=== PATIENT | male | born 1985 | race African-American/Black ===

== ENCOUNTER 2016-06-16 05:42 | Inpatient (IN) | payer MEDICAID ==
[2016-06-16 06:27] LABS: Hematocrit 39 % (42-52); Hemoglobin 12.8 g/dl (14.0-18.0); Mean Corpuscular HGB Conc 33 g/dl (31-36); Mean Corpuscular Hemoglobin 28 pg (27-31); Mean Corpuscular Volume 84 fL (80-94); Mean Platelet Volume 8 um3 (7.4-10.4); Red Blood Count 4.63 10^6/ul (4.0-5.4); Red Cell Distribution Width 14 % (10.5-15); White Blood Count 5.9 10^3/ul (3.5-10.8)
[2016-06-16 06:40] LABS: Urine Bacteria Absent (Absent); Urine Bilirubin Negative (Negative); Urine Glucose Negative (Negative); Urine Nitrite Negative (Negative)
[2016-06-16 06:44] LABS: ALT 13 U/L (7-52); AST 14 U/L (13-39); Albumin 4.5 g/dL (3.2-5.2); Alkaline Phosphatase 71 U/L (34-104); Anion Gap 11 mmol/L (2-11); BUN/Creatinine Ratio 22.4 (8-20); Blood Urea Nitrogen 17 mg/dL (6-24); CO2 Carbon Dioxide 23 mmol/L (22-32); Calcium 9.7 mg/dL (8.6-10.3); Chloride 102 mmol/L (101-111); EGFR African American 155.9 (>60); EGFR Non-African American 121.3 (>60); Globulin 3.5 g/dL (2-4); Glucose 102 mg/dL (70-100); Potassium 3.4 mmol/L (3.5-5.0); Sodium 136 mmol/L (133-145)
[2016-06-16 06:46] LABS: Benzodiazepine Urine Screen None Detected (None Detect)
[2016-06-16 06:57] LABS: Acetaminophen < 15 mcg/mL; Alcohol < 10 mg/dL (<10); Salicylate < 2.50 mg/dL (<30)
[2016-06-16 07:08] LABS: TSH (Thyroid Stimulating Horm) 1.14 mcIU/mL (0.34-5.60)
[2016-06-16] MEDS ORDERED: Al Hydrox/Mg Hydrox/Simet LIQ* 30 ML UDC PO PRN (13:52)
[2016-06-16] MEDS ORDERED: Acetaminophen TAB* 325 MG PO PRN (13:52)
--- NOTE | 2016-06-16 14:53 | ED ---
Yareli Witt Auryana, scribed for Michael Sevilla MD on 06/16/16 at 0841 . Substance Abuse/Use - HPI Summary HPI Summary: 31 year old male KALIA with SI. Per triage - patient went to [place] [facility] stating that he has suicidal ideation and stated that he used crack cocaine and alcohol (@ 00:00 today). Patient was resting quietly on stretcher - level 5 caveat due to sleepiness. MEDICALLY CLEAR AT 07:19. - History Of Current Complaint Chief Complaint: [facility]MentalHealth Stated Complaint: MHE Time Seen by Provider: 06/16/16 07:20 Hx Obtained From: Medical Records, Other: - triage nurse Hx From Patient Unobtainable Due To: Other - levvel 5 caveat due to substance abuse Ingestion History: Type/Name Of Drug - crack cocaine and ETOH Timing Of Abuse: Binge Use Aggravating Factor(s): Other - mothers passing in 2014 Associated Signs And Symptoms: Other: - suicidal ideation Related Hx: Drug/Alcohol Last Used @ - midnight 06/16/16, Possible Multi Drug Ingestion - crack cocaine and ETOH, Suicidal: Thoughts - Risk Factor(s) Completed Suicide Risk Factors: Male - Allergies/Home Medications Allergies/Adverse Reactions: Allergies Allergy/AdvReac Type Severity Reaction Status Date / Time No Known Allergies Allergy Verified 06/16/16 06:00 Home Medications: Home Medications NK [No Home Medications Reported] 06/16/16 [History Confirmed 06/16/16] PMH/Surg Hx/FS Hx/Imm Hx Endocrine/Hematology History: Denies: Hx Anticoagulant Therapy, Hx Diabetes, Hx Thyroid Disease Cardiovascular History: Denies: Hx Hypertension, Hx Pacemaker/ICD Respiratory History: Denies: Hx Asthma, Hx Chronic Obstructive Pulmonary Disease (COPD) History: Denies: Hx Renal Disease Neurological History: Denies: Hx Dementia, Hx Seizures Psychiatric History: Reports: Hx Substance Abuse - cocaine - Surgical History Surgery Procedure, Year, and Place: None - Immunization History Date of Tetanus Vaccine: UNKNOWN Date of Influenza Vaccine: NO Infectious Disease History: No Infectious Disease History: Denies: Hx Hepatitis, Hx Human Immunodeficiency Virus (HIV), Traveled Outside the US in Last 30 Days - Family History Known Family History: Positive: Cardiac Disease - mother of [place] - Social History Occupation: Employed Part-time - [employer] Lives: Alone Alcohol Use: Weekly Substance Use Type: Reports: Cocaine Hx Tobacco Use: Yes Smoking Status (MU): Heavy Every Day Tobacco Smoker Type: Cigarettes Amount Used/How Often: 5 per day Review of Systems - ROS Summary Review of Systems Summary: level 5 caveat due to substance abuse Positive: Other - substance abuse. Negative: Fever Positive: Other - SI All Other Systems Reviewed And Are Negative: No Physical Exam - Summary Physical Exam Summary: Patient is medically clear at 07:19 Triage Information Reviewed: Yes Vital Signs On Initial Exam: Initial Vitals Temp 98 F 06/16/16 05:46 Vital Signs Reviewed: Yes Completion Of Physical Exam Limited Due To: Level 5 - level 5 caveat due to substance abuse Appearance: Positive: Well-Appearing, No Pain Distress - sleeping on physician visit Skin: Positive: Warm, Skin Color Reflects Adequate Perfusion, Dry Head/Face: Positive: Normal Head/Face Inspection Neck: Positive: Supple Respiratory/Lung Sounds: Positive: Breath Sounds Present Cardiovascular: Positive: RRR Diagnostics - Vital Signs Vital Signs Temp Pulse Resp BP Pulse Ox 06/16/16 05:57 98 F 101 18 159/94 98 06/16/16 05:46 98 F - Laboratory Lab Results: Lab Results 06/16/16 06/16/16 06/16/16 Range/Units 06:15 06:15 06:15 WBC 5.9 (3.5-10.8) 10^3/ul RBC 4.63 (4.0-5.4) 10^6/ul Hgb 12.8 L (14.0-18.0) g/dl Hct 39 L (42-52) % MCV 84 (80-94) fL MCH 28 (27-31) pg MCHC 33 (31-36) g/dl RDW 14 (10.5-15) % Plt Count 219 (150-450) 10^3/ul MPV 8 (7.4-10.4) um3 Neut % (Auto) 62.8 (38-83) % Lymph % (Auto) 30.6 (25-47) % [place] % (Auto) 5.7 (1-9) % Eos % (Auto) 0.2 (0-6) % Baso % (Auto) 0.7 (0-2) % Absolute Neuts (auto) 3.7 (1.5-7.7) 10^3/ul Absolute Lymphs (auto) 1.8 (1.0-4.8) 10^3/ul Absolute Monos (auto) 0.3 (0-0.8) 10^3/ul Absolute Eos (auto) 0 (0-0.6) 10^3/ul Absolute Basos (auto) 0 (0-0.2) 10^3/ul Absolute Nucleated RBC 0 10^3/ul Nucleated RBC % 0 Sodium 136 (133-145) mmol/L Potassium 3.4 L (3.5-5.0) mmol/L Chloride 102 (101-111) mmol/L Carbon Dioxide 23 (22-32) mmol/L Anion Gap 11 (2-11) mmol/L BUN 17 (6-24) mg/dL Creatinine 0.76 (0.67-1.17) mg/dL Est GFR ( Amer) 155.9 (>60) Est GFR (Non-Af Amer) 121.3 (>60) BUN/Creatinine Ratio 22.4 H (8-20) Glucose 102 H (70-100) mg/dL Calcium 9.7 (8.6-10.3) mg/dL Total Bilirubin 0.60 (0.2-1.0) mg/dL AST 14 (13-39) U/L ALT 13 (7-52) U/L Alkaline Phosphatase 71 (34-104) U/L Total Protein 8.0 (6.4-8.9) g/dL Albumin 4.5 (3.2-5.2) g/dL Globulin 3.5 (2-4) g/dL Albumin/Globulin Ratio 1.3 (1-3) TSH 1.14 (0.34-5.60) mcIU/mL Urine Color Yellow Urine Appearance Cloudy Urine pH 5.0 (5-9) Ur Specific Dud[place] 1.036 H (1.010-1.030) Urine Protein 1+(30 mg/dl) H (Negative) Urine Ketones Trace H (Negative) Urine Blood Negative (Negative) Urine Nitrate Negative (Negative) Urine Bilirubin Negative (Negative) Urine Urobilinogen Negative (Negative) Ur Leukocyte Esterase Negative (Negative) Urine WBC (Auto) Trace(0-5/hpf) (Absent) Urine RBC (Auto) 1+(3-5/hpf) H (Absent) Ur Squamous Epith Cells Present H (Absent) Urine Bacteria Absent (Absent) Urine Glucose Negative (Negative) Salicylates < 2.50 (<30) mg/dL Urine Opiates Screen (None Detect) Acetaminophen < 15 mcg/mL Ur Barbiturates Screen (None Detect) Ur Phencyclidine Scrn (None Detect) Ur Amphetamines Screen (None Detect) U Benzodiazepines Scrn (None Detect) Urine Cocaine Screen (None Detect) U Cannabinoids Screen (None Detect) Serum Alcohol < 10 (<10) mg/dL 06/16/16 Range/Units 06:15 WBC (3.5-10.8) 10^3/ul RBC (4.0-5.4) 10^6/ul Hgb (14.0-18.0) g/dl Hct (42-52) % MCV (80-94) fL MCH (27-31) pg MCHC (31-36) g/dl RDW (10.5-15) % Plt Count (150-450) 10^3/ul MPV (7.4-10.4) um3 Neut % (Auto) (38-83) % Lymph % (Auto) (25-47) % [place] % (Auto) (1-9) % Eos % (Auto) (0-6) % Baso % (Auto) (0-2) % Absolute Neuts (auto) (1.5-7.7) 10^3/ul Absolute Lymphs (auto) (1.0-4.8) 10^3/ul Absolute Monos (auto) (0-0.8) 10^3/ul Absolute Eos (auto) (0-0.6) 10^3/ul Absolute Basos (auto) (0-0.2) 10^3/ul Absolute Nucleated RBC 10^3/ul Nucleated RBC % Sodium (133-145) mmol/L Potassium (3.5-5.0) mmol/L Chloride (101-111) mmol/L Carbon Dioxide (22-32) mmol/L Anion Gap (2-11) mmol/L BUN (6-24) mg/dL Creatinine (0.67-1.17) mg/dL Est GFR ( Amer) (>60) Est GFR (Non-Af Amer) (>60) BUN/Creatinine Ratio (8-20) Glucose (70-100) mg/dL Calcium (8.6-10.3) mg/dL Total Bilirubin (0.2-1.0) mg/dL AST (13-39) U/L ALT (7-52) U/L Alkaline Phosphatase (34-104) U/L Total Protein (6.4-8.9) g/dL Albumin (3.2-5.2) g/dL Globulin (2-4) g/dL Albumin/Globulin Ratio (1-3) TSH (0.34-5.60) mcIU/mL Urine Color Urine Appearance Urine pH (5-9) Ur Specific Dudley (1.010-1.030) Urine Protein (Negative) Urine Ketones (Negative) Urine Blood (Negative) Urine Nitrate (Negative) Urine Bilirubin (Negative) Urine Urobilinogen (Negative) Ur Leukocyte Esterase (Negative) Urine WBC (Auto) (Absent) Urine RBC (Auto) (Absent) Ur Squamous Epith Cells (Absent) Urine Bacteria (Absent) Urine Glucose (Negative) Salicylates (<30) mg/dL Urine Opiates Screen None detected (None Detect) Acetaminophen mcg/mL Ur Barbiturates Screen None detected (None Detect) Ur Phencyclidine Scrn None detected (None Detect) Ur Amphetamines Screen None detected (None Detect) U Benzodiazepines Scrn None detected (None Detect) Urine Cocaine Screen Presumptive positive H (None Detect) U Cannabinoids Screen Presumptive positive H (None Detect) Serum Alcohol (<10) mg/dL Result Diagrams: 06/16/16 06:15 06/16/16 06:15 Lab Statement: Any lab studies that have been ordered have been reviewed, and results considered in the medical decision making process. Course/Dx - Course Course Of Treatment: NO CRITICAL CARE TIME Assessment/Plan: ADMIT MHU STABLE - Diagnoses Provider Diagnoses: Mental health problem Discharge - Discharge Plan Condition: Stable Disposition: ADMITTED TO [facility] documentation as recorded by the Yareli hopkins Auryana accurately reflects the service I personally performed and the decisions made by me, Michael Sevilla MD.
[2016-06-17] MEDS: Mouth Piece, Nicotine* 1 EACH CARTRIDGE INH ONE ×2 (07:59→16:51)
[2016-06-17] MEDS: Vitamin THERAPEUTIC TAB PO SCH (09:40)
[2016-06-17] MEDS: Nicotine Inhaler* 10 MG AMP INH PRN (16:50)
[2016-06-17] MEDS: Nicotine PATCH 14 MG/24 HR* PATCH TRANSDERM SCH (17:10)
[2016-06-17] MEDS: Nicotine GUM* 2 MG PO PRN (17:55)
[2016-06-17] MEDS: hydrOXYzine HCL TAB* 50 MG PO PRN (17:55)
--- NOTE | 2016-06-17 19:34 | HP ---
PSYCHIATRIC HISTORY AND PHYSICAL: DATE OF ADMISSION: 06/16/16 JUSTIFICATION FOR ADMISSION: The patient is in need of 24-hour supervision and treatment secondary to suicidal ideations with a plan to jump into traffic or perhaps drink Antifreeze. CHIEF COMPLAINT: "Nobody in my family wants me and I feel at this point like somebody is just going to find me somewhere." HISTORY OF PRESENT ILLNESS: The patient is a 31-year-old single male with a history of cannabis and cocaine abuse who was brought in by the police yesterday after calling the police precinct and telling them that he felt suicidal. The patient indicates that for the last month since he broke up with his girlfriend and was kicked out of her house, he has been staying with various friends and family. He states all of them have kicked him out for various reasons and that he has been living out in the cold and has no place to stay. He states that he felt overwhelmed and started thinking of ways that he could end his life, jumping in front of an [address] or drinking antifreeze or two other things that he has been thinking about. I did screen him for symptoms of depression and although he admits to poor sleep secondary to being out on the streets and limited energy due to having not much food to eat, he denies other symptoms such as anhedonia, guilt, concentration problems, appetite disturbance, psychomotor retardation, or agitation. The patient states that his problems began approximately 2 years ago when his mother . He was very dependent on her and since then he has struggled both with drugs and with having stable housing in the community. At this point, what he is seeking is housing and followup treatment in the community. He doubts that he would be interested in substance abuse treatment at this time. PAST PSYCHIATRIC HISTORY: He has never received any psychiatric services including medications, therapies, or hospitalizations. He indicates that he has never attempted suicide. He has no history of violence towards others. No history of traumatic brain injury and no history of abuse or neglect. SUBSTANCE ABUSE HISTORY: Significant for almost daily cannabis use since his teenage years, which he does not feel is a problem. He also admits that he has been abusing cocaine several times a week for the past 2 years. He denies other illicit substances of abuse and does not drink alcohol. He smokes approximately 1/2 pack of cigarettes per day. PAST MEDICAL HISTORY: Noncontributory. PAST SURGICAL HISTORY: Has no history of surgeries. MEDICATIONS: He is not on any current medications. ALLERGIES: Has no known drug allergies. FAMILY HISTORY: Significant for several family members with active drug abuse problems. He is unaware of any suicides in the family. SOCIAL HISTORY: The patient was born and raised in [place]. He moved with his mother to [place] approximately 2 to 3 years ago. However, she leaving him homeless. He has 11 total siblings being the 11th out of 12 children. He did graduate from high school in [place] and has 22 credit hours at [employer]. He self-identifies as single and heterosexual, and has no sexually transmitted diseases. He has never been in the . He has never been . Has no children. He grew up [facility], but now states that he is agnostic. He does have a significant legal history of being on [facility] 60 days in [facility] for stealing a credit card back in 2014. Recently, he had been working at a local [employer], but he was apparently fired for time and attendance issues approximately 2 weeks ago. REVIEW OF SYSTEMS: The patient denies headache or double vision. He denies cough, sore throat, difficulty breathing, or chest pain. He denies abdominal pain, nausea, vomiting, diarrhea, or constipation. He denies difficulty ambulating, rashes, enlarged lymph nodes, fevers, or changes in weight. PHYSICAL EXAMINATION VITAL SIGNS: Blood pressure 141/89, heart rate 97, oxygen saturations are 100% on room air, respiratory rate is 16 breaths per minute, temperature is 99.1 degrees Fahrenheit. HEENT: Head is normocephalic, atraumatic. NECK: Supple. CHEST: Clear to auscultation bilaterally. CARDIAC: Exam reveal normal heart sounds. ABDOMEN: Soft and nontender. SKIN: Warm and dry. MUSCULOSKELETAL: Exam reveals no sign of edema. NEUROLOGICAL: He is grossly intact with no focal deficits. LABORATORY DATA: His CBC reveals mild anemia with hemoglobin of 12.8 and a hematocrit of 39. Otherwise, CBC is within normal limits. CMP is significant for mildly elevated glucose at 102, mildly low potassium at 3.4. Urinalysis is positive for 1+ trace protein, 1+ red blood cells, and trace ketones. Urine drug screen is positive for both cocaine and cannabinoids, but negative for all other substances tested including alcohol. MENTAL STATUS EXAM: The patient is a young male with nappy dread- locked hair. He is dressed in green patient scrubs. He is lying supine in bed under his covers. He is initially asleep, but easily arousable and he makes good eye contact and is calm and cooperative. Speech is slow, but with normal volume. Mood is dysthymic with constricted affect. Thought process is linear and goal directed. Thought content is significant for his desire to find housing in the community. He denies suicidal or homicidal ideations currently. He denies auditory or visual hallucinations. Insight and judgment are fair given his willingness to come in and seek treatment. Cognitively, he is awake and alert with what appeared to be an average intellect. DIAGNOSES: Sw[place] I: Cocaine-induced mood disorder, cocaine use disorder, cannabis use disorder. Sw[place] II: Deferred. Swanton III: Mild anemia. Swanton IV: Severe primary support and housing stressors. Swanton V: At this time is 50. IMPRESSION: The patient is a 31-year-old single male with a history of cocaine and cannabis abuse who arrives due to homelessness and report to the police that he was feeling suicidal. Currently, he is no longer suicidal, but states that he would like to get into outpatient treatment as well as find housing in the community. The patient does not have collateral contacts to get in touch with at this time. PLAN: The patient is admitted to the adult behavioral health unit where he is placed on q.30 minute checks for his own safety. We have placed him on a nicotine patch for nicotine withdrawal. I can certainly repeat CBC to check and see if his anemia is stable. We will ask for social work consult for assistance in housing. The patient is precontemplative in terms of seeking substance abuse treatment at this time. I do not think that he warrants medication treatment at this time given the fact that his pathology appears to be substance abuse related in nature. While he is here, he is certainly encouraged to avail himself of all milieu activities. We will make sure that appropriate followup is put in place before he is discharged. [id number]/[facility] #: [id number] JILL
[2016-06-17] MEDS: Nicotine Patch Removal NOTE FOLLOW UP SCH (20:57)
[2016-06-18] MEDS: Vitamin THERAPEUTIC TAB PO SCH (09:36)
[2016-06-18] MEDS: Nicotine PATCH 14 MG/24 HR* PATCH TRANSDERM SCH (09:36)
--- NOTE | 2016-06-18 14:36 | PN ---
Subjective - Subjective Service Type: 43916 Hosp care 15 min low complexity Subjective: Today I had the opportunity to meet with Linnette. He was in his room in bed, under the covers, reporting that he felt tired. Reporting good sleep, but still some fatigue. Reports good appetite, and feels that his mood is "a bit better." He report that he met with his social work manager today and is anticipating inpatient rehab. He reports that he is also exploring alternative living options upon his discharge- one possibility includes moving in with his older brother in [place]. No new issues reported at present. Case reviewed with Dr. Cade. Objective - Appearance Dysmorphic Features: No Hygiene: Normal Grooming: Disheveled - Behavior Psychomotor Activities: Normal Exhibits Abnormal Movement: No - Attitude and Relatedness Attitude and Relatedness: Cooperative Eye Contact: Fair - Speech Quality: Unpressured Latencies: Normal Quantity: Appropriate - Mood Patient's Decription of Mood: "Okay" - Affect Observed Affect: Non-labile Affect Consistent with: Dysphoria - Thought Process Patient's Thought Process: Coherent Thought Content: No Passive Wish, No Suicidal Planning, No Homicidal Ideation, No Paranoid Ideation - Sensorium Experiencing Hallucinations: No, Sensorium is Clear - Level of Consciousness Level of Consciousness: Agitated Orientation: Yes Intact - Impulse Control Impulse Control: Tenuous - Insight and Judgement Insight and Judgement: Fair - Group Participation Particating in Group Activities: Yes Assessment - Assessment Clinical Impression: Tai is a 31 year old AA male who is currently in early recovery from cannabis and cocaine abuse who was admitted for his own safety after devising a suicide plan to "walk into traffic." Plan - Plan Treatment Plan: Name: TAI ASHRAF Birthdate: 1985 [id number] Medications: Current Medications Acetaminophen (Tylenol Tab*) 650 mg PO Q4H PRN PRN Reason: for pain; or Temp >101 F Al Hydrox/Mg Hydrox/Simethicone (Maalox Plus*) 30 ml PO Q4H PRN PRN Reason: INDIGESTION Hydroxyzine HCl (Atarax Tab*) 50 mg PO Q6H PRN PRN Reason: AGITATION/ANXIETY/INSOMNIA Last Admin: 06/17/16 17:55 Dose: 50 mg Multivitamins (Theragran Tab*) 1 tab PO DAILY [facility] Last Admin: 06/18/16 09:36 Dose: 1 tab Nicotine (Nicotine Inhaler*) 10 mg INH Q2H PRN PRN Reason: CRAVING Last Admin: 06/17/16 16:50 Dose: 10 mg Nicotine (Nicotine Patch 14 Mg/24 Hr*) 1 patch TRANSDERM DAILY [facility] Last Admin: 06/18/16 09:36 Dose: 1 patch Nicotine Polacrilex (Nicotine Gum*) 2 mg PO Q2H PRN PRN Reason: CRAVING Last Admin: 06/17/16 17:55 Dose: 2 mg Pharmacy Profile Note (Nicotine Patch Removal Note*) 1 note FOLLOW UP 2100 [facility] Last Admin: 06/17/16 20:57 Dose: Not Given
[2016-06-18] MEDS: hydrOXYzine HCL TAB* 50 MG PO PRN (18:24)
[2016-06-18] MEDS: Nicotine GUM* 2 MG PO PRN (18:24)
[2016-06-18] MEDS: Nicotine Inhaler* 10 MG AMP INH PRN (18:25)
[2016-06-18] MEDS: Nicotine Patch Removal NOTE FOLLOW UP SCH (21:37)
[2016-06-19] MEDS: Vitamin THERAPEUTIC TAB PO SCH (08:24)
[2016-06-19] MEDS: Nicotine PATCH 14 MG/24 HR* PATCH TRANSDERM SCH (08:24)
[2016-06-19] MEDS: Nicotine Inhaler* 10 MG AMP INH PRN (20:01)
[2016-06-19] MEDS: Nicotine Patch Removal NOTE FOLLOW UP SCH (20:01)
[2016-06-20] MEDS: Nicotine PATCH 14 MG/24 HR* PATCH TRANSDERM SCH (08:40)
[2016-06-20] MEDS: Vitamin THERAPEUTIC TAB PO SCH (08:40)
--- NOTE | 2016-06-20 12:45 | PN ---
Subjective - Subjective Service Type: 64776 Hosp care 15 min low complexity Subjective: The patient is calm and cooperative. He endorses mild dysthymia but denies SI or HI. We discuss the pros and cons of antidepressant therapy in the setting of ongoing substance misuse and he declines an offered trial of citalopram. He does inquire about housing and disability assistance. The patient has agreed to a referral to inpatient drug rehab. Objective - Appearance Appearance: Obese Dysmorphic Features: No Hygiene: Normal Grooming: Well Kept - Behavior Psychomotor Activities: Normal Exhibits Abnormal Movement: No - Attitude and Relatedness Attitude and Relatedness: Cooperative Eye Contact: Good - Speech Quality: Unpressured Latencies: Normal Quantity: Appropriate - Mood Patient's Decription of Mood: "Sad" - Affect Observed Affect: Fair Affect Consistent with: Euthymia - Thought Process Patient's Thought Process: Coherent Thought Content: No Passive Wish, No Suicidal Planning, No Homicidal Ideation, No Paranoid Ideation - Sensorium Experiencing Hallucinations: No, Sensorium is Clear Type of Hallucinations: Visual: No, Auditory: No, Command: No - Level of Consciousness Level of Consciousness: Alert Orientation: Yes Intact, Yes Orientated to Time, Yes Orientated to Place, Yes Orientated to Person - Impulse Control Impulse Control: Tenuous - Insight and Judgement Insight and Judgement: Fair - Group Participation Particating in Group Activities: Yes - Medication Management Medication Management Adherence: Yes Assessment - Assessment Merits Inpatient Hospitalization: Consolidate Improvements, Pending Safe DC Plan Inpatient DSM-IV Dx: Cocaine Induced Mood DO Clinical Impression: 31 y.o. single, AA, homeless male with a history of cocaine and cannabis misuse arrives voluntarily seeking admission secondary to depressed mood since the of his mother two years ago and SI with thoughts to drink antifreeze or step into traffic. Plan - Plan Treatment Plan: Name: TAI ASHRAF Birthdate: 1985 [id number] The patient is calm and cooperative on the unit. We await assistance by the Medicaid coronary care unit nurse to get him reinsured. He is invested in going to [facility] re[facility] on an inpatient basis, which I think he would benefit from. Continued Medication Management: Consider Medication Medications: Current Medications Acetaminophen (Tylenol Tab*) 650 mg PO Q4H PRN PRN Reason: for pain; or Temp >101 F Al Hydrox/Mg Hydrox/Simethicone (Maalox Plus*) 30 ml PO Q4H PRN PRN Reason: INDIGESTION Hydroxyzine HCl (Atarax Tab*) 50 mg PO Q6H PRN PRN Reason: AGITATION/ANXIETY/INSOMNIA Last Admin: 06/18/16 18:24 Dose: 50 mg Multivitamins (Theragran Tab*) 1 tab PO DAILY [facility] Last Admin: 06/20/16 08:40 Dose: 1 tab Nicotine (Nicotine Inhaler*) 10 mg INH Q2H PRN PRN Reason: CRAVING Last Admin: 06/19/16 20:01 Dose: 10 mg Nicotine (Nicotine Patch 14 Mg/24 Hr*) 1 patch TRANSDERM DAILY [facility] Last Admin: 06/20/16 08:40 Dose: 1 patch Nicotine Polacrilex (Nicotine Gum*) 2 mg PO Q2H PRN PRN Reason: CRAVING Last Admin: 06/18/16 18:24 Dose: 2 mg Pharmacy Profile Note (Nicotine Patch Removal Note*) 1 note FOLLOW UP 2100 [facility] Last Admin: 06/19/16 20:01 Dose: 1 note - Discharge Plan Discharge Plan: Drug/Alcohol Rehab
[2016-06-20] MEDS: Nicotine Inhaler* 10 MG AMP INH PRN (13:52)
[2016-06-20] MEDS: Nicotine Patch Removal NOTE FOLLOW UP SCH (20:20)
[2016-06-21 07:37] VITALS: BP 147/90
[2016-06-21] MEDS: Nicotine PATCH 14 MG/24 HR* PATCH TRANSDERM SCH (11:05)
[2016-06-21] MEDS: Vitamin THERAPEUTIC TAB PO SCH (11:05)
--- NOTE | 2016-06-21 21:35 | DS ---
DISCHARGE SUMMARY: DATE OF ADMISSION: 06/16/16 DATE OF DISCHARGE: 06/21/16 DISCHARGE DIAGNOSES: As follows: Sherman I: Cocaine-induced mood disorder, cocaine use disorder, cannabis use disorder. Sherman II: Defe rred. Sherman III: Mild anemia. Sherman IV: Severe primary support housing stressors. Sherman V: At the t santos of admission is 50 and at the time of discharge is 60. CONDITION AT THE TIME OF DISCHARGE: Stable. The patient has been denying suicidal ideations throug hout his hospitalization and he has been safe on all checks at this time. He is indicating that he would like to find emergency housing through [facility] and we will be discharging him to that facility thi s morning. The patient is declining inpatient substance abuse rehab indicating his preference to re ceive treatment on an outpatient basis. He is future oriented indicating that his plan is to go to [employer] where he used to be employed and get his old job back and start working towards getting h is own apartment. His affect appears to be euthymic and we see no evidence whatsoever of thoughts o f harming himself or others. In fact, he denies suicidal or homicidal ideations right up until the point of discharge. MENTAL STATUS EXAM: The patient is a young -Kyrgy[place] male who is slightly overweight with dr velázquez-locked hair. He is dressed in green patient scrubs. He is lying supine in bed under his covers . He is initially asleep, but easily arousable and he makes good eye contact and is calm and mike ative. Speech is slow, but with normal volume. Mood is euthymic with a full affect. Thought proce ss is linear and goal directed. Thought content is significant for his desire to be discharged from the hospital. He denies suicidal or homicidal ideations currently. He denies auditory or visual river llucinations. Insight and judgment are fair given his willingness to seek outpatient substance abus e treatment. Cognitively, he is awake and alert with what would appear to be an average intellect. DISCHARGE INSTRUCTIONS: To the patient are as follows: A. Medications. None. B. Diet: Regular. C. Activity: As tolerated. The patient is strongly encouraged to consider abstaining from tobacco products; however, he is declining the offer of continued nicotine replacement therapy on an outpat ient basis indicating his preference to continue smoking cigarettes for the time being. There are n o diagnostic studies pending at the time of discharge. D. Followup treatment: The patient will be followed at the [facility] and his intake there would be within one week of discharge. HOSPITAL COURSE: Part A: Reason for admission: The patient is a 31-year-old single -[place] male with a history of cannabis and cocaine abuse who was brought in by police yesterday after ca lling the police precinct and telling them that he felt suicidal. The patient indicates that for th e past month, he has broken up with his girlfriend and was kicked out of her house, and had been sta james with various friends and family. He states that all of them have kicked him out for various re asons and that he had been living out in the cold and had no place to stay. He states that he was f eeling overwhelmed and started thinking of ways that he could possibly end his life including though ts of either jumping in front of an 18-wheeled vehicle or drinking antifreeze. I did screen him for symptoms of depression and although he admitted to poor sleep secondary to being out on the streets and somewhat limited energy due to not having much food to eat, he did deny other symptoms such as anhedonia, guilt, concentration problems, appetite disturbance, psychomotor retardation, or agitatio n. The patient states that his problems began approximately 2 years ago when his mother . He w as very dependent on her and since then, he has struggled both with drugs and maintaining stable bg sing in the community. At this point, what he was seeking was housing and followup treatment in the community. He doubted that he would be interested in substance abuse treatment at the time of admi ssion. Part B: Psychiatric treatment rendered: The patient was admitted to the adult behavioral health [facility] where he was placed on q.30-minute checks for his own safety. He expressed an interest in gettin g on disability and he was educated that this is a process to be pursued in the outpatient setting. We were able to talk to him initially into changing his mind about rehab and we worked towards gett ing his Medicaid reactivated so that we could refer him to a rehab. However, he changed his mind an d on the date of discharge, he is stating that what he really wants is to seek emergency housing thr [facility] and to get his old job back at [employer]. He was willing to accept a referral to the [facility] [place]. At this point, the patient has been safe on all checks and we see no reason that would justify of keeping him at a more restricted inpatient level of care. He i s discharged to outpatient followup and we wish him the best for a safe, sober, and healthy future. [id number]/[facility] #: [id number]
== END 2016-06-21 12:20 | disposition home or self-care (01) | DRG 897 ==
LOC: ED 05:42 → BSU 14:10
PROVIDERS: ADMIT Psychiatry & Neurology Psychiatry; ATTEND Psychiatry & Neurology Psychiatry
DX: F14.14 Cocaine abuse with cocaine-induced mood disorder (principal); R45.851 Suicidal ideations; D64.9 Anemia, unspecified; F17.210 Nicotine dependence, cigarettes, uncomplicated; F12.10 Cannabis abuse, uncomplicated; Z81.3 Family history of other psychoactive substance abuse and dependence
CPT/HCPCS: 36415; 80053; 80307; 80320; 80329; 81003; 81015; 84443; 85025; 99222; 99231; 99238; A9270-GY; G0480

== ENCOUNTER 2016-09-06 01:24 | Emergency (ER) | payer MEDICAID, OTHER ==
--- NOTE | 2016-09-06 01:45 | ED ---
Dione Witt Alok, scribed for Wander Smith MD on 09/06/16 at 0139 . Psychiatric Complaint - HPI Summary HPI Summary: 31M presents to the ED seeking mental health evaluation. Pt reportedly called for EMS himself stating SI. Pt notes recent stress of family member passing away and thoughts of hurting himself since. Pt states difficulty breathing at present. Pt denies taking any drugs this evening. - History Of Current Complaint Chief Complaint: EDMentalHealth Time Seen by Provider: 09/06/16 01:31 Hx Obtained From: Patient Onset/Duration: Still Present Timing: Constant Severity Initially: Moderate Severity Currently: Moderate Character: Depressed Aggravating Factor(s): Recent Stress Alleviating Factor(s): Nothing Has Suicidal: Reports: Thoughts - Allergies/Home Medications Allergies/Adverse Reactions: Allergies Allergy/AdvReac Type Severity Reaction Status Date / Time No Known Allergies Allergy Verified 09/06/16 01:28 PMH/Surg Hx/FS Hx/Imm Hx Previously Healthy: Yes Endocrine/Hematology History: Denies: Hx Anticoagulant Therapy, Hx Diabetes, Hx Thyroid Disease Cardiovascular History: Denies: Hx Hypertension, Hx Pacemaker/ICD Respiratory History: Denies: Hx Asthma, Hx Chronic Obstructive Pulmonary Disease (COPD) History: Denies: Hx Renal Disease Sensory History: Reports: Hx Contacts or Glasses - Does not have with him Denies: Hx Hearing Aid Opthamlomology History: Reports: Hx Contacts or Glasses - Does not have with him Neurological History: Denies: Hx Dementia, Hx Seizures Psychiatric History: Reports: Hx Substance Abuse - cocaine Denies: Hx Eating Disorder, Hx of Violent Episodes Against Others - denies - Surgical History Surgery Procedure, Year, and Place: None - Immunization History Date of Tetanus Vaccine: UNKNOWN Date of Influenza Vaccine: NO Infectious Disease History: No Infectious Disease History: Denies: Hx Hepatitis, Hx Human Immunodeficiency Virus (HIV), Traveled Outside the [place] in Last 30 Days - Family History Known Family History: Positive: Cardiac Disease - mother of CA - Social History Occupation: Employed Full-time Alcohol Use: Daily Substance Use Type: Reports: Cocaine Hx Tobacco Use: Yes Smoking Status (MU): Heavy Every Day Tobacco Smoker Type: Cigarettes Amount Used/How Often: 5 per day Review of Systems Negative: Fever Positive: Shortness Of Breath Positive: Depressed All Other Systems Reviewed And Are Negative: Yes Physical Exam Triage Information Reviewed: Yes Vital Signs On Initial Exam: Initial Vitals Temp Pulse Resp BP Pulse Ox 98.4 F 112 22 168/110 99 09/06/16 01:29 09/06/16 01:29 09/06/16 01:29 09/06/16 01:29 09/06/16 01:29 Vital Signs Reviewed: Yes Appearance: Positive: Well-Appearing, No Pain Distress Skin: Positive: Warm Head/Face: Positive: Normal Head/Face Inspection Eyes: Positive: DAVIS ENT: Positive: Hearing grossly normal Neck: Positive: Supple Respiratory/Lung Sounds: Positive: Clear to Auscultation, Breath Sounds Present Cardiovascular: Positive: RRR Abdomen Description: Positive: Nontender, Soft Bowel Sounds: Positive: Present Musculoskeletal: Positive: Strength/ROM Intact Neurological: Positive: Alert, Oriented to Person Place, Time Psychiatric: Positive: Depressed Diagnostics - Vital Signs Vital Signs Temp Pulse Resp BP Pulse Ox 09/06/16 01:29 98.4 F 112 22 168/110 99 - Laboratory Result Diagrams: 09/06/16 02:10 09/06/16 02:10 Lab Statement: Any lab studies that have been ordered have been reviewed, and results considered in the medical decision making process. Course/Dx - Course Course Of Treatment: Patient is medically clear for MHU evaluation at 0405 - Differential Dx/Clinical Impression Provider Diagnosis: Suicidal ideations - Physician Notifications Instructed by Provider To: Admit As Inpatient Discharge - Discharge Plan Condition: Stable Disposition: PSYCHIATRIC FACILITY-OTHER Discharge Disposition Comment: none Referrals: No Primary Care Phys,NOPCP [Primary Care Provider] - The documentation as recorded by the Dione hopkins Alok accurately reflects the service I personally performed and the decisions made by , Wander Smith MD.
[2016-09-06 02:23] LABS: Hematocrit 39 % (42-52); Hemoglobin 12.6 g/dl (14.0-18.0); Mean Corpuscular HGB Conc 33 g/dl (31-36); Mean Corpuscular Hemoglobin 29 pg (27-31); Mean Corpuscular Volume 88 fL (80-94); Mean Platelet Volume 8 um3 (7.4-10.4); Red Blood Count 4.38 10^6/ul (4.0-5.4); Red Cell Distribution Width 15 % (10.5-15); White Blood Count 4.9 10^3/ul (3.5-10.8)
[2016-09-06] MEDS ORDERED: Acetaminophen TAB* 325 MG PO ONE (02:33)
[2016-09-06 02:59] LABS: ALT 12 U/L (7-52); AST 17 U/L (13-39); Albumin 4.3 g/dL (3.2-5.2); Alkaline Phosphatase 67 U/L (34-104); Anion Gap 13 mmol/L (2-11); BUN/Creatinine Ratio 10.1 (8-20); Blood Urea Nitrogen 8 mg/dL (6-24); CO2 Carbon Dioxide 22 mmol/L (22-32); Calcium 9.5 mg/dL (8.6-10.3); Chloride 104 mmol/L (101-111); EGFR African American 149.1 (>60); Globulin 3.4 g/dL (2-4); Glucose 101 mg/dL (70-100); Potassium 3.7 mmol/L (3.5-5.0); Sodium 139 mmol/L (133-145); Total Protein 7.7 g/dL (6.4-8.9)
[2016-09-06 03:20] LABS: Acetaminophen < 15 mcg/mL; Alcohol 29 mg/dL (<10); Salicylate < 2.50 mg/dL (<30)
[2016-09-06 03:29] LABS: TSH (Thyroid Stimulating Horm) 0.71 mcIU/mL (0.34-5.60)
[2016-09-06 04:25] LABS: Urine Bilirubin Negative (Negative); Urine Glucose Negative (Negative); Urine Nitrite Negative (Negative)
[2016-09-06 04:44] LABS: Benzodiazepine Urine Screen None Detected (None Detect)
[2016-09-06 08:08] VITALS: BP 120/70
== END 2016-09-07 01:58 ==
LOC: ED 01:24
DX: R45.851 Suicidal ideations (principal); F17.210 Nicotine dependence, cigarettes, uncomplicated
CPT/HCPCS: 36415; 80053; 80307; 80320; 80329; 81003; 84443; 85025; 93005; 99284; A9270-GY; G0480

== ENCOUNTER → 2017-01-24 08:29 | Emergency (ER) | payer OTHER ==
[2017-01-24 09:06] LABS: Urine Appearance Cloudy; Urine Blood 1+ (Negative); Urine Color Yellow; Urine Ketones Trace (Negative); Urine Protein Negative (Negative); Urine Specific Gravity 1.018 (1.010-1.030); Urine Urobilinogen Negative (Negative)
[2017-01-24 09:16] LABS: ABS Basophils 0 10^3/ul (0-0.2); ABS Eosinophils 0 10^3/ul (0-0.6); ABS Lymphocytes 2.1 10^3/ul (1.0-4.8); ABS Monocytes 0.5 10^3/ul (0-0.8); ABS Neutrophils 3.1 10^3/ul (1.5-7.7); ABS Nucleated RBC 0.01 10^3/ul; Eosinophil % 0.3 % (0-6); Hematocrit 37 % (42-52); Hemoglobin 12.4 g/dl (14.0-18.0); Mean Corpuscular HGB Conc 34 g/dl (31-36); Mean Corpuscular Hemoglobin 29 pg (27-31); Mean Corpuscular Volume 87 fL (80-94); Mean Platelet Volume 8 um3 (7.4-10.4); Nucleated Red Blood Cells % 0.1; Platelet Count 222 10^3/ul (150-450); Red Blood Count 4.25 10^6/ul (4.0-5.4); Red Cell Distribution Width 14 % (10.5-15); White Blood Count 5.8 10^3/ul (3.5-10.8)
[2017-01-24 09:32] LABS: EGFR Non-African American 121.3 (>60)
--- NOTE | 2017-01-25 02:06 | PN ---
ED Flex Patient Progress Note Date of Service: 01/25/17 Subjective: This is a 31 year-old M who is pending observed secondary to depression. He was currently a sleep. He voices no compliant. Objective: Vitals: Most recent vital signs documented below. General NAD, Alert and oriented x3. Heart: rrr at 70_ bpm Lungs: CTA or with rales, rhonchi, wheezing abd: soft nontender Laboratory: Current laboratory results documented below. Assessment: depression Plan: Pending psychiatric to observe will follow up daily till disposition made Condition: stable Vital Signs Temp Pulse Resp BP Pulse Ox 97.5 F 100 16 124/71 100 01/24/17 14:26 01/24/17 14:26 01/24/17 14:26 01/24/17 14:26 01/24/17 14:26 Lab Results - Entire Visit 01/24/17 01/24/17 01/24/17 09:03 09:03 08:50 WBC 5.8 RBC 4.25 Hgb 12.4 L Hct 37 L MCV 87 MCH 29 MCHC 34 RDW 14 Plt Count 222 MPV 8 Neut % (Auto) 53.4 Lymph % (Auto) 37.0 Moody % (Auto) 8.5 Eos % (Auto) 0.3 Baso % (Auto) 0.8 Absolute Neuts (auto) 3.1 Absolute Lymphs (auto) 2.1 Absolute Monos (auto) 0.5 Absolute Eos (auto) 0 Absolute Basos (auto) 0 Absolute Nucleated RBC 0.01 Nucleated RBC % 0.1 Sodium 137 Potassium 4.0 Chloride 103 Carbon Dioxide 24 Anion Gap 10 BUN 14 Creatinine 0.76 Est GFR ( Amer) 155.9 Est GFR (Non-Af Amer) 121.3 BUN/Creatinine Ratio 18.4 Glucose 80 Calcium 9.8 Total Bilirubin 1.00 AST 17 ALT 13 Alkaline Phosphatase 74 Total Protein 7.9 Albumin 4.4 Globulin 3.5 Albumin/Globulin Ratio 1.3 TSH 2.45 Urine Color Yellow Urine Appearance Cloudy Urine pH 5.0 Ur Specific [place] 1.018 Urine Protein Negative Urine Ketones Trace H Urine Blood 1+ H Urine Nitrate Negative Urine Bilirubin Negative Urine Urobilinogen Negative Ur Leukocyte Esterase Negative Urine WBC (Auto) Trace(0-5/hpf) Urine RBC (Auto) Trace(0-2/hpf) Ur Squamous Epith Cells Present H Urine Bacteria Absent Urine Glucose Negative Salicylates < 2.50 Urine Opiates Screen Acetaminophen < 15 Ur Barbiturates Screen Ur Phencyclidine Scrn Ur Amphetamines Screen U Benzodiazepines Scrn Urine Cocaine Screen U Cannabinoids Screen Serum Alcohol < 10 01/24/17 08:50 WBC RBC Hgb Hct MCV MCH MCHC RDW Plt Count MPV Neut % (Auto) Lymph % (Auto) Moody % (Auto) Eos % (Auto) Baso % (Auto) Absolute Neuts (auto) Absolute Lymphs (auto) Absolute Monos (auto) Absolute Eos (auto) Absolute Basos (auto) Absolute Nucleated RBC Nucleated RBC % Sodium Potassium Chloride Carbon Dioxide Anion Gap BUN Creatinine Est GFR ( Amer) Est GFR (Non-Af Amer) BUN/Creatinine Ratio Glucose Calcium Total Bilirubin AST ALT Alkaline Phosphatase Total Protein Albumin Globulin Albumin/Globulin Ratio TSH Urine Color Urine Appearance Urine pH Ur Specific [place] Urine Protein Urine Ketones Urine Blood Urine Nitrate Urine Bilirubin Urine Urobilinogen Ur Leukocyte Esterase Urine WBC (Auto) Urine RBC (Auto) Ur Squamous Epith Cells Urine Bacteria Urine Glucose Salicylates Urine Opiates Screen None detected Acetaminophen Ur Barbiturates Screen None detected Ur Phencyclidine Scrn None detected Ur Amphetamines Screen None detected U Benzodiazepines Scrn None detected Urine Cocaine Screen Presumptive positive H U Cannabinoids Screen Presumptive positive H Serum Alcohol
--- NOTE | 2017-01-25 16:26 | PN ---
ED Flex Patient Progress Note Date of Service: 01/25/17 Subjective: This is a 31 year-old M who is pending transfer to inpatient drug and alcohol rehabilitation. He is calm and under good behavioral control. He denies SI and wants to get clean and sober. Objective: Calm, cooperative; denies SI or HI. Assessment: Cocaine Use DO Plan: Pending transfer to inpatient rehab. Psych will follow up daily. Vital Signs Temp Pulse Resp BP Pulse Ox 97.8 F 87 18 125/80 98 01/25/17 10:11 01/25/17 10:11 01/25/17 10:11 01/25/17 10:11 01/25/17 10:11 Lab Results - Entire Visit 01/24/17 01/24/17 01/24/17 09:03 09:03 08:50 WBC 5.8 RBC 4.25 Hgb 12.4 L Hct 37 L MCV 87 MCH 29 MCHC 34 RDW 14 Plt Count 222 MPV 8 Neut % (Auto) 53.4 Lymph % (Auto) 37.0 [place] % (Auto) 8.5 Eos % (Auto) 0.3 Baso % (Auto) 0.8 Absolute Neuts (auto) 3.1 Absolute Lymphs (auto) 2.1 Absolute Monos (auto) 0.5 Absolute Eos (auto) 0 Absolute Basos (auto) 0 Absolute Nucleated RBC 0.01 Nucleated RBC % 0.1 Sodium 137 Potassium 4.0 Chloride 103 Carbon Dioxide 24 Anion Gap 10 BUN 14 Creatinine 0.76 Est GFR ( Amer) 155.9 Est GFR (Non-Af Amer) 121.3 BUN/Creatinine Ratio 18.4 Glucose 80 Calcium 9.8 Total Bilirubin 1.00 AST 17 ALT 13 Alkaline Phosphatase 74 Total Protein 7.9 Albumin 4.4 Globulin 3.5 Albumin/Globulin Ratio 1.3 TSH 2.45 Urine Color Yellow Urine Appearance Cloudy Urine pH 5.0 Ur Specific [place] 1.018 Urine Protein Negative Urine Ketones Trace H Urine Blood 1+ H Urine Nitrate Negative Urine Bilirubin Negative Urine Urobilinogen Negative Ur Leukocyte Esterase Negative Urine WBC (Auto) Trace(0-5/hpf) Urine RBC (Auto) Trace(0-2/hpf) Ur Squamous Epith Cells Present H Urine Bacteria Absent Urine Glucose Negative Salicylates < 2.50 Urine Opiates Screen Acetaminophen < 15 Ur Barbiturates Screen Ur Phencyclidine Scrn Ur Amphetamines Screen U Benzodiazepines Scrn Urine Cocaine Screen U Cannabinoids Screen Serum Alcohol < 10 01/24/17 08:50 WBC RBC Hgb Hct MCV MCH MCHC RDW Plt Count MPV Neut % (Auto) Lymph % (Auto) [place] % (Auto) Eos % (Auto) Baso % (Auto) Absolute Neuts (auto) Absolute Lymphs (auto) Absolute Monos (auto) Absolute Eos (auto) Absolute Basos (auto) Absolute Nucleated RBC Nucleated RBC % Sodium Potassium Chloride Carbon Dioxide Anion Gap BUN Creatinine Est GFR ( Amer) Est GFR (Non-Af Amer) BUN/Creatinine Ratio Glucose Calcium Total Bilirubin AST ALT Alkaline Phosphatase Total Protein Albumin Globulin Albumin/Globulin Ratio TSH Urine Color Urine Appearance Urine pH Ur Specific [place] Urine Protein Urine Ketones Urine Blood Urine Nitrate Urine Bilirubin Urine Urobilinogen Ur Leukocyte Esterase Urine WBC (Auto) Urine RBC (Auto) Ur Squamous Epith Cells Urine Bacteria Urine Glucose Salicylates Urine Opiates Screen None detected Acetaminophen Ur Barbiturates Screen None detected Ur Phencyclidine Scrn None detected Ur Amphetamines Screen None detected U Benzodiazepines Scrn None detected Urine Cocaine Screen Presumptive positive H U Cannabinoids Screen Presumptive positive H Serum Alcohol
[2017-01-25 17:09] VITALS: BP 133/80
--- NOTE | 2017-01-26 11:00 | UC ---
I, Milo Camejo, scribed for Julieth Redmond MD on 01/25/17 at 1834 . Progress - Progress Note Progress Note: This patient was signed out from Dr. Dimas, pending disposition, awaiting MHE. Pt is going to stay with his girlfriend. He is going to try to go to a substance abuse rehab in [place]. Per Nikki . Patient states there is nothing he needs to tell or ask a doctor. He says he will stay clean for a week until he gets into the rehab. He states there is no pain but asks for depression medication. He has been on Zoloft previously he states I am not currently SI but sometimes I am. A physical exam was performed in the room. Appearance: Well-appearing, no pain distress, Well-nourished Skin: Warm, color reflects adequate perfusion Head: Normal Head/Face Eyes: Conjunctiva clear ENT: Normal appearance Neck: Supple Respiratory: Lungs clear, Normal breath sounds, no respiratory distress Cardio: RRR, No murmur, pulses normal, brisk capillary refill Musculoskeletal: Strength Intact/ ROM intact Neuro: Alert, muscle tone normal,facial symmetry, speech normal, sensory/motor intact - Consult/PCP Time Called: 14:30 The documentation as recorded by the Nell hopkins Gabriel accurately reflects the service I personally performed and the decisions made by me, Julieth Redmond MD.
--- NOTE | 2017-02-09 10:23 | ED ---
Vasu Witt Angela scribed for Ayo March MD on 01/24/17 at 0849 . Psychiatric Complaint - HPI Summary HPI Summary: This pt is a 31 y/o male presenting to [facility] c/o SI and depression. Pt reports he is feeling overwhelmed with life and is having SI thoughts. He has a plan for SI, which includes overdosing. Pt is currently homeless and describes not sleeping well. Pt notes he has never had prior suicide attempts but has been admitted to a psychiatric hospital before. He states the last time he was transferred to [place]. Pt does not take any medications currently but notes he was prescribed Zoloft. Pt admits to smoking marijuana and using cocaine, last time he did was yesterday. - History Of Current Complaint Chief Complaint: EDMentalHealth Time Seen by Provider: 01/24/17 08:39 Hx Obtained From: Patient Onset/Duration: Lasting Days, Still Present Timing: Days Character: Depressed Aggravating Factor(s): Other - pt is homeless Associated Signs And Symptoms: Positive: Sleep Disturbance Related History: Positive For: Prior Psychiatric Issues - prior admission to psychiatric hospital Has Suicidal: Reports: Thoughts, With A Plan - Allergies/Home Medications Allergies/Adverse Reactions: Allergies Allergy/AdvReac Type Severity Reaction Status Date / Time No Known Allergies Allergy Verified 09/06/16 01:28 PMH/Surg Hx/FS Hx/Imm Hx Endocrine/Hematology History: Denies: Hx Anticoagulant Therapy, Hx Diabetes, Hx Thyroid Disease Cardiovascular History: Denies: Hx Hypertension, Hx Pacemaker/ICD Respiratory History: Denies: Hx Asthma, Hx Chronic Obstructive Pulmonary Disease (COPD) History: Denies: Hx Renal Disease Sensory History: Reports: Hx Contacts or Glasses - Does not have with him Denies: Hx Hearing Aid Opthamlomology History: Reports: Hx Contacts or Glasses - Does not have with him Neurological History: Denies: Hx Dementia, Hx Seizures Psychiatric History: Reports: Hx Substance Abuse - cocaine Denies: Hx Eating Disorder, Hx of Violent Episodes Against Others - denies - Surgical History Surgery Procedure, Year, and Place: None - Immunization History Date of Tetanus Vaccine: UNKNOWN Date of Influenza Vaccine: NO Infectious Disease History: No Infectious Disease History: Denies: Hx Hepatitis, Hx Human Immunodeficiency Virus (HIV), Traveled Outside the US in Last 30 Days - Family History Known Family History: Positive: Cardiac Disease - mother of [place] - Social History Alcohol Use: Daily Substance Use Type: Reports: Cocaine, Marijuana Hx Tobacco Use: Yes Smoking Status (MU): Heavy Every Day Tobacco Smoker Type: Cigarettes Amount Used/How Often: 5 per day Review of Systems Constitutional: Other - sleep disturbance Negative: Fever, Chills Negative: Erythema Negative: Sore Throat Negative: Chest Pain Negative: Shortness Of Breath, Cough Negative: Abdominal Pain, Vomiting, Nausea Negative: dysuria, hematuria Negative: Myalgia, Edema Negative: Rash Neurological: Other - NEG: dizziness Psychological: Other - SI thoughts and plan Positive: Depressed All Other Systems Reviewed And Are Negative: Yes Physical Exam - Summary Physical Exam Summary: Constitutional: Well-developed, Well-nourished, Alert. (-) Distressed Skin: Warm, Dry HENT: Normocephalic; Atraumatic Eyes: Conjunctiva normal Neck: Musculoskeletal ROM normal neck. (-) JVD, (-) Stridor, (-) Tracheal deviation Cardio: Rhythm regular, rate normal, Heart sounds normal; Intact distal pulses; The pedal pulses are 2+ and symmetric. Radial pulses are 2+ and symmetric. (-) Murmur Pulmonary/Chest wall: Effort normal. (-) Respiratory distress, (-) Wheezes, (-) Rales Abd: Soft, (-) Tenderness, (-) Distension, (-) Guarding, (-) Rebound Musculoskeletal: (-) Edema Lymph: (-) Cervical adenopathy Neuro: Alert, Oriented x3 Psych: Mood and affect Normal Triage Information Reviewed: Yes Vital Signs On Initial Exam: Initial Vitals Temp Pulse Resp BP Pulse Ox 98.1 F 102 18 135/101 98 01/24/17 08:30 01/24/17 08:30 01/24/17 08:30 01/24/17 08:30 01/24/17 08:30 Vital Signs Reviewed: Yes Diagnostics - Vital Signs Vital Signs Temp Pulse Resp BP Pulse Ox 01/24/17 08:30 98.1 F 102 18 135/101 98 - Laboratory Lab Results: Lab Results 01/24/17 01/24/17 01/24/17 Range/Units 08:50 08:50 09:03 WBC (3.5-10.8) 10^3/ul RBC (4.0-5.4) 10^6/ul Hgb (14.0-18.0) g/dl Hct (42-52) % MCV (80-94) fL MCH (27-31) pg MCHC (31-36) g/dl RDW (10.5-15) % Plt Count (150-450) 10^3/ul MPV (7.4-10.4) um3 Neut % (Auto) (38-83) % Lymph % (Auto) (25-47) % [place] % (Auto) (1-9) % Eos % (Auto) (0-6) % Baso % (Auto) (0-2) % Absolute Neuts (auto) (1.5-7.7) 10^3/ul Absolute Lymphs (auto) (1.0-4.8) 10^3/ul Absolute Monos (auto) (0-0.8) 10^3/ul Absolute Eos (auto) (0-0.6) 10^3/ul Absolute Basos (auto) (0-0.2) 10^3/ul Absolute Nucleated RBC 10^3/ul Nucleated RBC % Sodium 137 (133-145) mmol/L Potassium 4.0 (3.5-5.0) mmol/L Chloride 103 (101-111) mmol/L Carbon Dioxide 24 (22-32) mmol/L Anion Gap 10 (2-11) mmol/L BUN 14 (6-24) mg/dL Creatinine 0.76 (0.67-1.17) mg/dL Est GFR ( Amer) 155.9 (>60) Est GFR (Non-Af Amer) 121.3 (>60) BUN/Creatinine Ratio 18.4 (8-20) Glucose 80 (70-100) mg/dL Calcium 9.8 (8.6-10.3) mg/dL Total Bilirubin 1.00 (0.2-1.0) mg/dL AST 17 (13-39) U/L ALT 13 (7-52) U/L Alkaline Phosphatase 74 (34-104) U/L Total Protein 7.9 (6.4-8.9) g/dL Albumin 4.4 (3.2-5.2) g/dL Globulin 3.5 (2-4) g/dL Albumin/Globulin Ratio 1.3 (1-3) TSH 2.45 (0.34-5.60) mcIU/mL Urine Color Yellow Urine Appearance Cloudy Urine pH 5.0 (5-9) Ur Specific [place] 1.018 (1.010-1.030) Urine Protein Negative (Negative) Urine Ketones Trace H (Negative) Urine Blood 1+ H (Negative) Urine Nitrate Negative (Negative) Urine Bilirubin Negative (Negative) Urine Urobilinogen Negative (Negative) Ur Leukocyte Esterase Negative (Negative) Urine WBC (Auto) Trace(0-5/hpf) (Absent) Urine RBC (Auto) Trace(0-2/hpf) (Absent) Ur Squamous Epith Cells Present H (Absent) Urine Bacteria Absent (Absent) Urine Glucose Negative (Negative) Salicylates < 2.50 (<30) mg/dL Urine Opiates Screen None detected (None Detect) Acetaminophen < 15 mcg/mL Ur Barbiturates Screen None detected (None Detect) Ur Phencyclidine Scrn None detected (None Detect) Ur Amphetamines Screen None detected (None Detect) U Benzodiazepines Scrn None detected (None Detect) Urine Cocaine Screen Presumptive positive H (None Detect) U Cannabinoids Screen Presumptive positive H (None Detect) Serum Alcohol < 10 (<10) mg/dL 01/24/17 Range/Units 09:03 WBC 5.8 (3.5-10.8) 10^3/ul RBC 4.25 (4.0-5.4) 10^6/ul Hgb 12.4 L (14.0-18.0) g/dl Hct 37 L (42-52) % MCV 87 (80-94) fL MCH 29 (27-31) pg MCHC 34 (31-36) g/dl RDW 14 (10.5-15) % Plt Count 222 (150-450) 10^3/ul MPV 8 (7.4-10.4) um3 Neut % (Auto) 53.4 (38-83) % Lymph % (Auto) 37.0 (25-47) % [place] % (Auto) 8.5 (1-9) % Eos % (Auto) 0.3 (0-6) % Baso % (Auto) 0.8 (0-2) % Absolute Neuts (auto) 3.1 (1.5-7.7) 10^3/ul Absolute Lymphs (auto) 2.1 (1.0-4.8) 10^3/ul Absolute Monos (auto) 0.5 (0-0.8) 10^3/ul Absolute Eos (auto) 0 (0-0.6) 10^3/ul Absolute Basos (auto) 0 (0-0.2) 10^3/ul Absolute Nucleated RBC 0.01 10^3/ul Nucleated RBC % 0.1 Sodium (133-145) mmol/L Potassium (3.5-5.0) mmol/L Chloride (101-111) mmol/L Carbon Dioxide (22-32) mmol/L Anion Gap (2-11) mmol/L BUN (6-24) mg/dL Creatinine (0.67-1.17) mg/dL Est GFR ( Amer) (>60) Est GFR (Non-Af Amer) (>60) BUN/Creatinine Ratio (8-20) Glucose (70-100) mg/dL Calcium (8.6-10.3) mg/dL Total Bilirubin (0.2-1.0) mg/dL AST (13-39) U/L ALT (7-52) U/L Alkaline Phosphatase (34-104) U/L Total Protein (6.4-8.9) g/dL Albumin (3.2-5.2) g/dL Globulin (2-4) g/dL Albumin/Globulin Ratio (1-3) TSH (0.34-5.60) mcIU/mL Urine Color Urine Appearance Urine pH (5-9) Ur Specific [place] (1.010-1.030) Urine Protein (Negative) Urine Ketones (Negative) Urine Blood (Negative) Urine Nitrate (Negative) Urine Bilirubin (Negative) Urine Urobilinogen (Negative) Ur Leukocyte Esterase (Negative) Urine WBC (Auto) (Absent) Urine RBC (Auto) (Absent) Ur Squamous Epith Cells (Absent) Urine Bacteria (Absent) Urine Glucose (Negative) Salicylates (<30) mg/dL Urine Opiates Screen (None Detect) Acetaminophen mcg/mL Ur Barbiturates Screen (None Detect) Ur Phencyclidine Scrn (None Detect) Ur Amphetamines Screen (None Detect) U Benzodiazepines Scrn (None Detect) Urine Cocaine Screen (None Detect) U Cannabinoids Screen (None Detect) Serum Alcohol (<10) mg/dL Result Diagrams: 01/24/17 09:03 01/24/17 09:03 Lab Statement: Any lab studies that have been ordered have been reviewed, and results considered in the medical decision making process. Course/Dx - Course Course Of Treatment: This pt is a 31 y/o male presenting to [facility] c/o SI and depression. Pt reports he is feeling overwhelmed with life and is having SI thoughts. He has a plan for SI, which includes overdosing. Pt is currently homeless and describes not sleeping well. Pt notes he has never had prior suicide attempts but has been admitted to a psychiatric hospital before. He states the last time he was transferred to [place]. Pt does not take any medications currently but notes he was prescribed Zoloft. Pt admits to smoking marijuana and using cocaine, last time he did was yesterday. Pt is medically cleared at 09:54. Pt is awaiting MHE. Pt will be signed out to the next ED attending, pending disposition, awaiting MHE. 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 Referrals: No Primary Care Phys,NOPCP [Primary Care Provider] - The documentation as recorded by the Vasu hopkins Angela accurately reflects the service I personally performed and the decisions made by me, Ayo March MD.
== END ==
LOC: ED 08:29
DX: F14.14 Cocaine abuse with cocaine-induced mood disorder (principal); Z72.89 Other problems related to lifestyle; R45.851 Suicidal ideations; F12.90 Cannabis use, unspecified, uncomplicated; F17.210 Nicotine dependence, cigarettes, uncomplicated
CPT/HCPCS: 36415; 80053; 80307; 80320; 80329; 81003; 81015; 84443; 85025; 99283; G0480

== ENCOUNTER 2017-08-25 17:26 | Emergency (ER) | payer SELFPAY ==
[2017-08-25] MEDS ORDERED: Acetaminophen TAB* 325 MG PO ONE (18:24)
--- NOTE | 2017-08-25 18:41 | ED ---
Altered Mental Status - HPI Summary HPI Summary: This is kellie Julien documenting for attending Willis Joya M.D. Pt is a 32 y/o M BIBA w/ c/o AMS onsetting around 1700 today. Pt was arguing with girlfriend today and was having a difficult time today due to memories of his mother's and life in general. He reports crying and walking down the street. He claims he was hyperventilating, that his right leg went numb, and that he "felt weird". He states he stopped a random woman on the street and asked for her to call an ambulance. He denies Hx of cutting. He acknowledge Hx of SI but denies any SI at present. Pt states that the first time he was suicidal he planned to go lay down on railroad tracks but decided to go to police station instead. He reports previous admission to psych wards three times. He was prescribed medication once before but does not take it. On triage , nothing is noted to alleviate/aggravate Sx and Pt states he has PEREZ. - History Of Current Complaint Chief Complaint: EDPsychosocial Stated Complaint: MHE Time Seen by Provider: 08/25/17 18:02 Hx Obtained From: Patient Timing: Lasting Hours - onset 1700 today Severity Currently: None Aggravating Factor(s): Nothing Alleviating Factor(s): Nothing Associated Signs And Symptoms: Positive: Headache Has Suicidal: Thoughts, With A Plan - Allergies/Home Medications Allergies/Adverse Reactions: Allergies Allergy/AdvReac Type Severity Reaction Status Date / Time No Known Allergies Allergy Verified 09/06/16 01:28 PMH/Surg Hx/FS Hx/Imm Hx Endocrine/Hematology History: Denies: Hx Anticoagulant Therapy, Hx Diabetes, Hx Thyroid Disease Cardiovascular History: Denies: Hx Hypertension, Hx Pacemaker/ICD Respiratory History: Denies: Hx Asthma, Hx Chronic Obstructive Pulmonary Disease (COPD) History: Denies: Hx Renal Disease Sensory History: Reports: Hx Contacts or Glasses - Does not have with him Denies: Hx Hearing Aid Opthamlomology History: Reports: Hx Contacts or Glasses - Does not have with him Neurological History: Denies: Hx Dementia, Hx Seizures Psychiatric History: Reports: Hx Substance Abuse - cocaine Denies: Hx Eating Disorder, Hx of Violent Episodes Against Others - denies - Surgical History Surgery Procedure, Year, and Place: None - Immunization History Date of Tetanus Vaccine: UNKNOWN Date of Influenza Vaccine: NO Infectious Disease History: No Infectious Disease History: Denies: Hx Hepatitis, Hx Human Immunodeficiency Virus (HIV), Traveled Outside the US in Last 30 Days - Family History Known Family History: Positive: Cardiac Disease - mother of [place] - Social History Alcohol Use: Daily Substance Use Type: Reports: Cocaine, Marijuana Hx Tobacco Use: Yes Smoking Status (MU): Heavy Every Day Tobacco Smoker Type: Cigarettes Amount Used/How Often: 5 per day Review of Systems Positive: Other - "felt weird" Positive: Other - hyperventilation Positive: Headache, Numbness - left leg All Other Systems Reviewed And Are Negative: Yes Physical Exam - Summary Physical Exam Summary: GENERAL: Patient is a well developed and nourished male who is lying comfortable in the stretcher. Patient is not in any acute respiratory distress. HEAD AND FACE: Normocephalic EYES: PERRLA, EOMI x 2. EARS: Hearing grossly intact. MOUTH: Oropharynx within normal limits. NECK: Supple, trachea is midline, no adenopathy, no JVD, no carotid bruit. CHEST: Symmetric, no tenderness at palpation LUNGS: Clear to auscultation bilaterally. No wheezing or crackles. CVS: Regular rate and rhythm, S1 and S2 present, no murmurs or gallops appreciated. ABDOMEN: Soft, non-tender. Bowel sounds are normal. No abdominal abnormal pulsations. EXTREMITIES: Full ROM in all major joints, no edema, no cyanosis or clubbing. NEURO: Alert and oriented x 3. No acute neurological deficits. Speech is normal and follows commands. SKIN: Dry and warm Triage Information Reviewed: Yes Vital Signs On Initial Exam: Initial Vitals Temp Pulse Resp BP Pulse Ox 98.4 F 95 16 151/99 98 08/25/17 17:34 08/25/17 17:34 08/25/17 17:34 08/25/17 17:34 08/25/17 17:34 Vital Signs Reviewed: Yes Diagnostics - Vital Signs Vital Signs Temp Pulse Resp BP Pulse Ox 08/25/17 17:34 98.4 F 95 16 151/99 98 - Laboratory Result Diagrams: 08/25/17 20:09 08/25/17 20:09 Lab Statement: Any lab studies that have been ordered have been reviewed, and results considered in the medical decision making process. Altered Mental Statu Course/Dx - Course Assessment/Plan: Pt is a 32 y/o M BIBA w/ c/o AMS onsetting around 1700 today. Pt was arguing with girlfriend today and was having a difficult time today due to memories of his mother's and life in general. He reports crying and walking down the street. He claims he was hyperventilating, that his right leg went numb, and that he "felt weird". He states he stopped a random woman on the street and asked for her to call an ambulance. He denies Hx of cutting. He acknowledge Hx of SI but denies any SI at present. Pt states that the first time he was suicidal he planned to go lay down on railroad tracks but decided to go to police station instead. He reports previous admission to psych wards three times. He was prescribed medication once before but does not take it. On triage, nothing is noted to alleviate/aggravate Sx and Pt states he has PEREZ. Physical exam was normal. Mental health consulted Dr. Joya at 18:27. wants to do a full MHE of patient. Dr. Roca agrees with this plan and Pt will be sent to [facility]. Pt was signed out to Dr. Roca and given a diagnosis of psychosocial problems. - Diagnoses Provider Diagnoses: Psychosocial problem - Provider Notifications Instructed by Provider To: Other - Pt discussed with mental health [facility] [employer] at 18:27. wants to do a full MHE of Pt. Dr. Joya agrees with this plan. Discharge - Sign-Out/Discharge Documenting (check all that apply): Sign-Out Patient Signing out patient TO: Parth Roca Receiving patient FROM: Willis Joya - Discharge Plan Disposition: HOME Patient Education Materials: Polysubstance Abuse (ED) Referrals: No Primary Care Phys,NOPCP [Primary Care Provider] - Additional Instructions: Per completion of a mental health evaluation, you are cleared for release and do not require inpatient psychiatric hospitalization at this time. Please go to nearest emergency room or call 911 if safety concerns arise or condition worsens. Important Phone Numbers: [facility] ph:[phone] [facility] ph:[phone] National Suicide Prevention Lifeline ph:[phone] (1490) [facility] ph:[phone] Alcoholics Anonymous ph:[phone] [facility] ph:[phone] [place] [employer] ph:[phone] Pt is to follow up with a phone call to [facility] Monday - Billing Disposition and Condition Disposition: Home
[2017-08-25 20:32] LABS: EGFR Non-African American 134.6 (>60)
[2017-08-25 20:37] LABS: ABS Basophils 0.1 10^3/ul (0-0.2); ABS Eosinophils 0 10^3/ul (0-0.6); ABS Lymphocytes 1.5 10^3/ul (1.0-4.8); ABS Monocytes 0.4 10^3/ul (0-0.8); ABS Neutrophils 4.2 10^3/ul (1.5-7.7); ABS Nucleated RBC 0 10^3/ul; Eosinophil % 0.4 % (0-6); Hematocrit 39 % (42-52); Lymphocyte % 24.1 % (25-47); Mean Corpuscular HGB Conc 33 g/dl (31-36); Mean Corpuscular Hemoglobin 29 pg (27-31); Mean Corpuscular Volume 87 fL (80-94); Nucleated Red Blood Cells % 0.1; Platelet Count 224 10^3/ul (150-450); Red Cell Distribution Width 13 % (10.5-15); White Blood Count 6.2 10^3/ul (3.5-10.8)
[2017-08-25 21:28] LABS: Urine Appearance Clear; Urine Blood 1+ (Negative); Urine Color Yellow; Urine Ketones Trace (Negative); Urine Protein Negative (Negative); Urine Red Blood Cell 2+(6-10/hpf) (Absent); Urine Urobilinogen Negative (Negative); Urine White Blood Cell Trace(0-5/hpf) (Absent)
[2017-08-25 22:37] VITALS: BP 131/78
== END 2017-08-25 22:24 | disposition home or self-care (01) ==
LOC: ED 17:26 → UNDOADMIN 23:05 → BSU 23:05
DX: Z65.8 Other specified problems related to psychosocial circumstances (principal); R51 Headache; F17.210 Nicotine dependence, cigarettes, uncomplicated
CPT/HCPCS: 36415; 80053; 80307; 80320; 80329; 81003; 81015; 84443; 85025; 87086; 99284; A9270-GY; G0480

== ENCOUNTER 2018-04-12 15:32 | Emergency (ER) | payer SELFPAY ==
[2018-04-12 15:59] LABS: Influenza A Molecular POSITIVE (Negative)
[2018-04-12] MEDS ORDERED: Ibuprofen TAB* 600 MG PO ONE (16:29)
[2018-04-12] MEDS ORDERED: Oseltamivir CAP* 75 MG CAP PO ONE (16:40)
--- NOTE | 2018-04-12 16:42 | ED ---
Influenza-Like Illness - HPI Summary HPI Summary: 33-year-old male presents with flulike illness for the past 2 days. is sick with the flu. He admits to a cough. He admits to sore throat and sinus congestion. Has no medical conditions. Denies any chest pain or shortness breath and nausea or vomiting. Has not tried anything for his symptoms. No abdominal pain. - History of Current Complaint Chief Complaint: EDFluSymptoms Time Seen by Provider: 04/12/18 16:23 - Allergy/Home Medications Allergies/Adverse Reactions: Allergies Allergy/AdvReac Type Severity Reaction Status Date / Time No Known Allergies Allergy Verified 09/06/16 01:28 PMH/Surg Hx/FS Hx/Imm Hx Endocrine/Hematology History: Denies: Hx Anticoagulant Therapy, Hx Diabetes, Hx Thyroid Disease Cardiovascular History: Denies: Hx Hypertension, Hx Pacemaker/ICD Respiratory History: Denies: Hx Asthma, Hx Chronic Obstructive Pulmonary Disease (COPD) History: Denies: Hx Renal Disease Sensory History: Reports: Hx Contacts or Glasses - Does not have with him Denies: Hx Hearing Aid Opthamlomology History: Reports: Hx Contacts or Glasses - Does not have with him Neurological History: Denies: Hx Dementia, Hx Seizures Psychiatric History: Reports: Hx Substance Abuse - cocaine Denies: Hx Eating Disorder, Hx of Violent Episodes Against Others - denies - Surgical History Surgery Procedure, Year, and Place: None - Immunization History Date of Tetanus Vaccine: UNKNOWN Date of Influenza Vaccine: NO Infectious Disease History: No Infectious Disease History: Denies: Hx Hepatitis, Hx Human Immunodeficiency Virus (HIV), Traveled Outside the US in Last 30 Days - Family History Known Family History: Positive: Cardiac Disease - mother of [place] - Social History Alcohol Use: Daily Substance Use Type: Reports: Cocaine, Marijuana Hx Tobacco Use: Yes Smoking Status (MU): Heavy Every Day Tobacco Smoker Type: Cigarettes Amount Used/How Often: 5 per day Review of Systems Positive: Fever Positive: Sore Throat, Nasal Discharge Negative: Chest Pain Positive: Cough. Negative: Shortness Of Breath Negative: Abdominal Pain All Other Systems Reviewed And Are Negative: Yes Physical Exam Triage Information Reviewed: Yes Vital Signs On Initial Exam: Initial Vitals Temp Pulse Resp BP Pulse Ox 97.1 F 109 20 136/84 98 04/12/18 15:38 04/12/18 15:38 04/12/18 15:38 04/12/18 15:38 04/12/18 15:38 Vital Signs Reviewed: Yes Appearance: Positive: Well-Appearing Skin: Positive: Warm, Dry Head/Face: Positive: Normal Head/Face Inspection Eyes: Positive: Normal, EOMI, DAVIS, Conjunctiva Clear ENT: Positive: Normal ENT inspection, Pharynx normal, TMs normal Neck: Positive: Supple, Nontender, No Lymphadenopathy Respiratory/Lung Sounds: Positive: Clear to Auscultation, Breath Sounds Present Cardiovascular: Positive: Normal, RRR Abdomen Description: Positive: Nontender, Soft Bowel Sounds: Positive: Present Musculoskeletal: Positive: Normal Neurological: Positive: Normal Psychiatric: Positive: Normal Diagnostics - Vital Signs Vital Signs Temp Pulse Resp BP Pulse Ox 04/12/18 15:38 97.1 F 109 20 136/84 98 - Laboratory Lab Results: Lab Results 04/12/18 Range/Units 15:54 Influenza A (Rapid) Positive A (Negative) Lab Statement: Any lab studies that have been ordered have been reviewed, and results considered in the medical decision making process. Flu Symptom Course/Dx - Course Course Of Treatment: 33-year-old male presents with flulike illness for the past 2 days. is sick with the flu. He admits to a cough. He admits to sore throat and sinus congestion. Has no medical conditions. Denies any chest pain or shortness breath and nausea or vomiting. Has not tried anything for his symptoms. No abdominal pain. On exam lungs clear to auscultation. Abdomen soft nontender. Pharynx slight erythema. Flu A positive. We'll treat with Tamiflu. Patient understands agrees plan. - Diagnoses Differential Diagnosis/HQI/PQRI: Positive: Bronchitis, Influenza, Upper Respiratory Infection Provider Diagnoses: Influenza Discharge - Sign-Out/Discharge Documenting (check all that apply): Patient Departure Patient Received Moderate/Deep Sedation with Procedure: No - Discharge Plan Condition: Good Disposition: HOME Prescriptions: Oseltamivir CAP* [Tamiflu CAP*] 75 mg PO BID #9 cap Patient Education Materials: Influenza (ED) Forms: *Work Release Referrals: [facility] [Outside] Additional Instructions: Take Tamiflu twice for 5 days first dose given in ED Take Tylenol and ibuprofen for muscle aches and fever every 6 hours Saline rinse can be used multiple times a day for nasal congestion Drink plenty of fluids establish care with primary Return to ED if develop any new or worsening symptoms - Billing Disposition and Condition Condition: GOOD Disposition: Home
[2018-04-12 17:14] VITALS: BP 139/95
== END 2018-04-12 17:13 | disposition home or self-care (01) ==
LOC: ED 15:32
DX: J10.1 Influenza due to other identified influenza virus with other respiratory manifestations (principal); F17.210 Nicotine dependence, cigarettes, uncomplicated
CPT/HCPCS: 99282; A9270-GY

== ENCOUNTER 2018-06-29 05:08 | Inpatient (IN) | payer MEDICAID ==
[2018-06-29] MEDS ORDERED: Haloperidol INJ IV/IM* 5 MG/ML AMP IM ONE (05:13)
[2018-06-29] MEDS ORDERED: diPHENhydraMINE IV* 50 MG/ML 1 ml VIAL (BENADRYL) IM ONE (05:13)
[2018-06-29] MEDS ORDERED: LORazepam INJ* 2 MG/ML 1 ML VIAL ONE ×2 (05:13→05:54)
[2018-06-29] MEDS ORDERED: LORazepam INJ* 2 MG/ML 1 ML VIAL IM ONE (05:13)
[2018-06-29] MEDS ORDERED: LORazepam TAB(*) 1 MG PO ONE (05:20)
--- NOTE | 2018-06-29 05:21 | ED ---
Psychiatric Complaint - HPI Summary HPI Summary: Pt is a 33 y/o M presenting to the ED brought in on a 9.41. LEVEL 5 CAVEAT: Pt s full hx and physical are limited due to pts lack of cooperation. The pt is stating continuously that he wants to , and that he plans to do whatever I want to do to . Pt continuously refusing to cooperate at bedside. - History Of Current Complaint Chief Complaint: EDMentalHealth Accompanied By: alone Hx Obtained From: Patient Hx From Patient Unobtainable Due To: Other Onset/Duration: Gradual Onset, Lasting Hours, Still Present Timing: Constant Severity Initially: Moderate Severity Currently: Moderate Character: Depressed, Angry Aggravating Factor(s): Nothing Alleviating Factor(s): Nothing Has Suicidal: Reports: Thoughts. Denies: With A Plan - Allergies/Home Medications Allergies/Adverse Reactions: Allergies Allergy/AdvReac Type Severity Reaction Status Date / Time No Known Allergies Allergy Verified 09/06/16 01:28 Home Medications: Home Medications NK [No Home Medications Reported] 06/29/18 [History Confirmed 06/29/18] PMH/Surg Hx/FS Hx/Imm Hx Previously Healthy: Yes Endocrine/Hematology History: Denies: Hx Anticoagulant Therapy, Hx Diabetes, Hx Thyroid Disease Cardiovascular History: Denies: Hx Hypertension, Hx Pacemaker/ICD Respiratory History: Denies: Hx Asthma, Hx Chronic Obstructive Pulmonary Disease (COPD) History: Denies: Hx Renal Disease Sensory History: Reports: Hx Contacts or Glasses - Does not have with him Denies: Hx Hearing Aid Opthamlomology History: Reports: Hx Contacts or Glasses - Does not have with him Neurological History: Denies: Hx Dementia, Hx Seizures Psychiatric History: Reports: Hx Substance Abuse - cocaine Denies: Hx Eating Disorder, Hx of Violent Episodes Against Others - denies - Surgical History Surgery Procedure, Year, and Place: None - Immunization History Date of Tetanus Vaccine: UNKNOWN Date of Influenza Vaccine: NO Infectious Disease History: No Infectious Disease History: Denies: Hx Hepatitis, Hx Human Immunodeficiency Virus (HIV), Traveled Outside the [place] in Last 30 Days - Family History Known Family History: Positive: Cardiac Disease - mother of CA - Social History Alcohol Use: Daily Hx Substance Use: Yes Substance Use Type: Reports: Cocaine, Marijuana Hx Tobacco Use: Yes Smoking Status (MU): Heavy Every Day Tobacco Smoker Type: Cigarettes Amount Used/How Often: 5 per day Review of Systems - ROS Summary Review of Systems Summary: LEVEL 5 CAVEAT: Pts full hx and physical are limited due to pts lack of cooperation. Positive: Depressed All Other Systems Reviewed And Are Negative: No Physical Exam - Summary Physical Exam Summary: Appearance: Pt is agitated, refusing any intervention. Skin: Warm, dry, no obvious rash Eyes: sclera anicteric, no conjunctival pallor ENT: mucous membranes moist Neck: deferred Respiratory: No signs of respiratory distress Cardiovascular: Appears well perfused, pulses are nml Abdomen: deferred Musculoskeletal: Moving all 4 extremities without obvious discomfort Neurological: Awake and alert, mentation is normal, speech is fluent and appropriate Psychiatric: affect is somewhat agitated, is definitively expressing suicidal ideation without a specific plan. Triage Information Reviewed: Yes Vital Signs On Initial Exam: Initial Vitals Temp Pulse Resp BP Pulse Ox 0 F 0 0 0/0 0 06/29/18 05:09 06/29/18 05:09 06/29/18 05:09 06/29/18 05:09 06/29/18 05:09 Vital Signs Reviewed: Yes Completion Of Physical Exam Limited Due To: Level 5 Diagnostics - Vital Signs Vital Signs Temp Pulse Resp BP Pulse Ox 06/29/18 05:09 0 F 0 0 0/0 0 - Laboratory Result Diagrams: 06/29/18 05:47 06/29/18 05:47 Lab Statement: Any lab studies that have been ordered have been reviewed, and results considered in the medical decision making process. Course/Dx - Course Course Of Treatment: Pt is a 33 y/o M presenting to the ED brought in on a 9.41. LEVEL 5 CAVEAT: Pts full hx and physical are limited due to pts lack of cooperation. The pt is stating continuously that he wants to , and that he plans to do whatever I want to do to . Pt continuously refusing to cooperate at bedside. Upon exam, the pt is agitated and suicidal but without a plan. He is refusing any intervention. Pt will be signed out to Dr. Redmond at shift change pending lab results and MHE. - Differential Dx/Clinical Impression Provider Diagnosis: Suicidal ideation, Major depression Discharge - Sign-Out/Discharge Documenting (check all that apply): Sign-Out Patient Signing out patient TO: Julieth Redmond Patient Received Moderate/Deep Sedation with Procedure: No - Discharge Plan Condition: Stable Disposition: [place]IATR[facility] [place] [place]illing Disposition and Condition Condition: STABLE Disposition: Psychiatric Facility [facility] - Attestation Statements Document Initiated by Andrea: Yes Documenting Scribe: Miya Barrett Provider For Whom Andrea is Documenting (Include Credential): Parth Roca MD. Scribe Attestation: Miya Witt, mateusibed for Parth Roca MD. on 07/03/18 at 1842. Scribe Documentation Reviewed: Yes Provider Attestation: The documentation as recorded by the scribe, Miya Barrett accurately reflects the service I personally performed and the decisions made by , Parth Roca MD. Status of Scribe Document: Viewed
[2018-06-29 05:57] LABS: ABS Basophils 0.1 10^3/ul (0-0.2); ABS Lymphocytes 1.5 10^3/ul (1.0-4.8); ABS Monocytes 0.4 10^3/ul (0-0.8); ABS Neutrophils 3.6 10^3/ul (1.5-7.7); Eosinophil % 0.4 %; Hematocrit 37 % (42-52); Hemoglobin 12.3 g/dL (14.0-18.0); Lymphocyte % 26.9 %; Mean Corpuscular HGB Conc 33 g/dL (31-36); Mean Corpuscular Hemoglobin 29 pg (27-31); Mean Corpuscular Volume 87 fL (80-94); Mean Platelet Volume 7.8 fL (7.4-10.4); Platelet Count 216 10^3/uL (150-450); Red Blood Count 4.27 10^6 /uL (4.18-5.48); Red Cell Distribution Width 15 % (10.5-15); White Blood Count 5.6 10^3/uL (3.5-10.8)
[2018-06-29 06:08] LABS: Urine Appearance Clear; Urine Bacteria Absent (Absent); Urine Bilirubin Negative (Negative); Urine Blood 2+ (Negative); Urine Color Straw; Urine Glucose Negative (Negative); Urine Ketones Negative (Negative); Urine Nitrite Negative (Negative); Urine Protein Negative (Negative); Urine Red Blood Cell Trace(0-2/hpf) (Absent); Urine Specific Gravity 1.011 (1.010-1.030); Urine Urobilinogen Negative (Negative); Urine White Blood Cell Absent (Absent)
[2018-06-29 06:16] LABS: ALT 14 U/L (7-52); AST 16 U/L (13-39); Albumin 4.5 g/dL (3.2-5.2); Albumin/Globulin Ratio 1.4 (1-3); Alkaline Phosphatase 67 U/L (34-104); Anion Gap 7 mmol/L (2-11); BUN/Creatinine Ratio 18.1 (8-20); Blood Urea Nitrogen 13 mg/dL (6-24); CO2 Carbon Dioxide 27 mmol/L (22-32); Calcium 9.3 mg/dL (8.6-10.3); Chloride 102 mmol/L (101-111); EGFR African American 154.1 (>60); EGFR Non-African American 127.3 (>60); Globulin 3.3 g/dL (2-4); Glucose 97 mg/dL (70-100); Potassium 4.4 mmol/L (3.5-5.0); Sodium 136 mmol/L (135-145); Total Protein 7.8 g/dL (6.4-8.9)
[2018-06-29 06:20] LABS: Urine Benzodiazepine Screen None Detected (None Detect); Urine Opiates Screen None Detected (None Detect)
[2018-06-29 07:25] LABS: Acetaminophen < 15 mcg/mL; Alcohol 51 mg/dL (<10); Salicylate < 2.50 mg/dL (<30)
[2018-06-29 07:41] LABS: TSH (Thyroid Stimulating Horm) 1.06 mcIU/mL (0.34-5.60)
--- NOTE | 2018-06-29 08:13 | ED ---
Progress - Progress Note Progress Note: RECEIVING SIGN-OUT FROM DR. ROCA AT SHIFT CHANGE (07:00) ON 06/29/2018 PENDING MHE. Pt is a 33 y/o M presenting for MHE due to SI brought in by police and EMS. Patient was non-cooperative upon arrival and required haldol 5mg, benadryl 50mg and ativan 2mg, all given IM. PE: Appearance: well-appearing, no acute pain distress, well-nourished, sleeping but rousable Skin: Warm, color reflects adequate perfusion, dry Head: Normal Head/Face inspection, atraumatic Eyes: Conjunctiva clear ENT: Normal inspection Neck: Supple, no nodes, no JVD Respiratory: Lungs clear, normal breath sounds, no respiratory distress Cardio: RRR, No murmur, pulses normal, brisk capillary refill Abdomen: Soft, nontender Bowel sounds: Present Musculoskeletal: Strength Intact/ROM intact, no calf tenderness, no edema. Psychological: suicidal Neuro: Alert, muscle tone normal, no focal deficit Re-Evaluation - Re-Evaluation 1 Re-Evaluation Time: 10:41 Change: Improved Comment: At bedside, patient is calm and aware that he was not behaving calmly upon his arrival. He complains of PEREZ, will order Tylenol, but denies injury. States he is still suicidal. Course/Dx - Course Course Of Treatment: RECEIVING SIGN-OUT FROM DR. ROCA AT SHIFT CHANGE (07:00) ON 06/29/2018 PENDING MHE. Pt is a 33 y/o M presenting for MHE due to SI brought in by police and EMS. Patient was non-cooperative upon arrival, and was given haldol 5mg, benadryl 50mg and ativan 2mg IM. Patient was calm for re-eval , c/o PEREZ, will order Tylenol. Per pattern cutter: Pt will be voluntarily admitted , per Dr. Castle, psych. Dx: major depression. Allergies noted. Pt medications reviewed this visit. Nurses note reviewed. - Diagnoses Provider Diagnoses: Suicidal ideation, Major depression Discharge - Sign-Out/Discharge Documenting (check all that apply): Patient Departure - ADMIT BHU, Receiving Sign-Out Receiving patient FROM: Parth Roca - 0700 06/29/18,pending MHE - Discharge Plan Condition: Stable Disposition: [facility]CHIATRIC FACILITY[place] [place] - Billing Disposition and Condition Condition: STABLE Disposition: Psychiatric Facility [facility] - Attestation Statements Document Initiated by Andrea: Yes Documenting Scribe: Heavenly Hinson Provider For Whom Andrea is Documenting (Include Credential): Dr. Julieth Redmond MD Scribe Attestation: Heavenly Witt, scribed for Dr. Julieth Redmond MD on 07/02/18 at 2153. Scribe Documentation Reviewed: Yes Provider Attestation: The documentation as recorded by the Heavenly hopkins accurately reflects the service I personally performed and the decisions made by me, Dr. Julieth Redmond MD Status of Scribe Document: Viewed
[2018-06-29] MEDS ORDERED: Acetaminophen TAB* 325 MG PO ONE (10:43)
[2018-06-29] MEDS ORDERED: Sertraline* 25 MG TAB PO ONE (12:51)
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
[2018-06-29] MEDS: Nicotine PATCH 14 MG/24 HR* PATCH TRANSDERM SCH (15:46)
[2018-06-29] MEDS: Nicotine Patch Removal NOTE PATCH OFF SCH (22:21)
[2018-06-30] MEDS: Sertraline* 50 MG TAB PO SCH (07:51)
[2018-06-30] MEDS: Nicotine PATCH 14 MG/24 HR* PATCH TRANSDERM SCH (07:51)
[2018-06-30] MEDS ORDERED: Al Hydrox/Mg Hydrox/Simet LIQ* 30 ML UDC PO PRN (18:18)
[2018-07-01 08:22] LABS: HDL Cholesterol 98.4 mg/dL
[2018-07-01] MEDS: Sertraline* 50 MG TAB PO SCH (08:49)
[2018-07-01] MEDS: Vitamin THERAPEUTIC TAB PO SCH (08:49)
[2018-07-01] MEDS: Nicotine PATCH 14 MG/24 HR* PATCH TRANSDERM SCH (08:49)
[2018-07-01] MEDS: Nicotine Patch Removal NOTE PATCH OFF SCH ×2 (08:50→22:42)
--- NOTE | 2018-07-01 18:39 | PN ---
Subjective - Subjective Date of Service: 07/01/18 Subjective: Noemi is improving, he denies SI or urges for sib and he contracts for safety. He denies side effects from prescribed Sertraline. He is interested in [place] placement as he does not want to return to ex-girlfriend's. Per staff, he has been seclusive to his room, sleeping long periods of time and only attending select unit activities. Objective - General Observations Appearance: Well Groomed Appears Stated Age: Yes Stature: Overweight Posture: WNL Eye Contact: Average Behavior/Activity: WNL - Interaction Observations Attitude Towards Examiner: Cooperative Stated Mood: Dysphoric Affect: Restricted Speech Pattern/Tone: Clear Thought Process: Coherent, Goal Directed Perception: WNL Thought Content: WNL Hallucination Type: None Delusion Type: None - Cognitive Function Orientation: A&O x 4 Level of Consciousness: Alert Cognition: WNL Estimated Intelligence: Normal Insight: Difficulty Acknowledging Presence of Psyciatric Problems Ability to Make Reasonable Decisions: Mildly Impaired - Medication Compliance Cooperative with Inpatient Medication Regimen: Yes - Group Participation Participates in Group Activities: Partial Assessment - Assessment Merits Inpatient Hospitalization: For Ongoing Evaluation, Consolidate Improvements, For Discharge Planning Clinical Impression: Endorsing reduced distress level, milder mood symptoms, denying suicidaly, neymar for safety and tolerating trial of Setraline with no side effects. Plan - Plan Treatment Plan: Name: TAI ASHRAF Birthdate: 1985 [id number] Medications: Current Medications Acetaminophen (Tylenol Tab*) 650 mg PO Q4H PRN PRN Reason: PAIN Al Hydrox/Mg Hydrox/Simethicone (Maalox Plus*) 30 ml PO Q4H PRN PRN Reason: INDIGESTION Multivitamins (Theragran Tab*) 1 tab PO DAILY [facility] Last Admin: 07/01/18 08:49 Dose: 1 tab Nicotine (Nicotine Patch 14 Mg/24 Hr*) 1 patch TRANSDERM DAILY@0800 [facility] Last Admin: 07/01/18 08:49 Dose: 1 patch Pharmacy Profile Note (Nicotine Patch Removal Note*) 1 note PATCH OFF 2100 [facility] Last Admin: 07/01/18 08:50 Dose: Not Given Sertraline HCl (Zoloft*) 50 mg PO DAILY [facility] Last Admin: 07/01/18 08:49 Dose: 50 mg - Discharge Plan Discharge Plan: Outpatient Follow Up Outpatient Program: [facility]
[2018-07-02] MEDS: Sertraline* 50 MG TAB PO SCH (08:45)
[2018-07-02] MEDS: Vitamin THERAPEUTIC TAB PO SCH (08:45)
[2018-07-02] MEDS: Nicotine PATCH 14 MG/24 HR* PATCH TRANSDERM SCH (08:45)
--- NOTE | 2018-07-02 12:44 | PN ---
Subjective - Subjective Date of Service: 07/02/18 Service Type: 86097 Hosp care 15 min low complexity Subjective: Tamra is seen in Holiday coverage for Dr. Castle. He is found in the Comfort Room where he is viewing some web coverage related to [place] basketball. He denies SI and states that he's tolerating sertraline well. He is requesting referral to an inpatient rehab. Objective - General Observations Appearance: Well Groomed Appears Stated Age: Yes Stature: Overweight Posture: WNL Eye Contact: Average Behavior/Activity: WNL - Interaction Observations Attitude Towards Examiner: Cooperative Stated Mood: Euthymic Affect: Full Speech Pattern/Tone: Clear Thought Process: Goal Directed Perception: WNL Thought Content: WNL Hallucination Type: None Delusion Type: None - Cognitive Function Orientation: A&O x 4 Level of Consciousness: Awake Cognition: WNL Estimated Intelligence: Normal Insight: WNL Judgment Within Normal Limits: Yes - Medication Compliance Cooperative with Inpatient Medication Regimen: Yes - Group Participation Participates in Group Activities: Yes Assessment - Assessment Merits Inpatient Hospitalization: Consolidate Improvements, Pending Safe DC Plan Inpatient DSM-V Dx: F14.24 Clinical Impression: Endorsing reduced distress level, milder mood symptoms, denying suicidaly, neymar for safety and tolerating trial of Setraline with no side effects. 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 Will refer to substance abuse treatment per patient's request. Continued Medication Management: Start Medication Medications: Current Medications Acetaminophen (Tylenol Tab*) 650 mg PO Q4H PRN PRN Reason: PAIN Al Hydrox/Mg Hydrox/Simethicone (Maalox Plus*) 30 ml PO Q4H PRN PRN Reason: INDIGESTION Multivitamins (Theragran Tab*) 1 tab PO DAILY [facility] Last Admin: 07/02/18 08:45 Dose: 1 tab Nicotine (Nicotine Patch 14 Mg/24 Hr*) 1 patch TRANSDERM DAILY@0800 [facility] Last Admin: 07/02/18 08:45 Dose: 1 patch Pharmacy Profile Note (Nicotine Patch Removal Note*) 1 note PATCH OFF 2099 [facility] Last Admin: 07/01/18 22:42 Dose: Not Given Sertraline HCl (Zoloft*) 50 mg PO DAILY [facility] Last Admin: 07/02/18 08:45 Dose: 50 mg - Discharge Plan Discharge Plan: Drug/Alcohol Rehab
[2018-07-03] MEDS: Nicotine Patch Removal NOTE PATCH OFF SCH (00:35)
[2018-07-03] MEDS: Nicotine PATCH 14 MG/24 HR* PATCH TRANSDERM SCH (08:45)
[2018-07-03] MEDS: Sertraline* 50 MG TAB PO SCH (08:45)
[2018-07-03] MEDS: Vitamin THERAPEUTIC TAB PO SCH (08:45)
--- NOTE | 2018-07-03 10:53 | PN ---
Subjective - Subjective Date of Service: 07/03/18 Service Type: 61169 Hosp care 35 min high complexity Subjective: Nursing Report: Patient was visible on unit Slept overnight without incident. He is attending some group activities. CC: "Okay Patient was seen and evaluated in the common room. The patient reported he would like to stop using crack cocaine and wants to go to substance abuse rehabilitation. He reported having an adequate appetite and sleep.Per nursing no behavioral issues or overnight events reported. Patient reported that he is tolerating medications without side effects. He spoke to his girlfriend on the phone and continues to request that he doesn't want her to visit. Objective - General Observations Appearance: Disheveled Appears Stated Age: Yes Stature: Overweight Posture: Slumped Eye Contact: Average Behavior/Activity: WNL - Interaction Observations Attitude Towards Examiner: Cooperative Stated Mood: Dysphoric Affect: Blunted Speech Pattern/Tone: Clear Thought Process: Coherent Perception: WNL Thought Content: Depressive Thought Process: Lethality: Passive Wish Hallucination Type: None Delusion Type: None - Cognitive Function Orientation: A&O x 4 Level of Consciousness: Awake Cognition: WNL - Medication Compliance Cooperative with Inpatient Medication Regimen: Yes - Group Participation Participates in Group Activities: Partial Assessment - Assessment Inpatient DSM-V Dx: F14.24 Clinical Impression: Endorsing reduced distress level, milder mood symptoms, denying suicidaly, neymar for safety and tolerating trial of Setraline with no side effects. Plan - Plan Treatment Plan: Name: TAI ASHRAF Birthdate: 1985 [id number] # Q30 minute observation with staff pass and computer access # The patient requires inpatient admission at this time to assure safety, receive treatment and work toward stabilization. # Obtain collateral information once release is signed. # Collaboration with Social Work to assist with disposition and after care. #Substance Abuse resources offered and patient motivated to quit using and engage in substance abuse rehab. #Tobacco use disorder: nicotine supplement offered and put in place. Sodium 136 mmol/L (135-145) 06/29/18 05:47 Potassium 4.4 mmol/L (3.5-5.0) 06/29/18 05:47 BUN 13 mg/dL (6-24) 06/29/18 05:47 Creatinine 0.72 mg/dL (0.67-1.17) 06/29/18 05:47 Hemoglobin A1c 5.8 % (4.0-5.6) H 07/01/18 07:52 Calcium 9.3 mg/dL (8.6-10.3) 06/29/18 05:47 AST 16 U/L (13-39) 06/29/18 05:47 ALT 14 U/L (7-52) 06/29/18 05:47 Triglycerides 63 mg/dL 07/01/18 07:52 Cholesterol 192 mg/dL 07/01/18 07:52 LDL Cholesterol 81 mg/dL 07/01/18 07:52 Vital Signs Temp Pulse Resp BP Pulse Ox 97.8 F 76 18 119/70 100 07/01/18 07:33 07/01/18 07:33 07/02/18 20:57 07/01/18 07:33 07/01/18 07:33 Continued Medication Management: Start Medication Medications: Current Medications Acetaminophen (Tylenol Tab*) 650 mg PO Q4H PRN PRN Reason: PAIN Al Hydrox/Mg Hydrox/Simethicone (Maalox Plus*) 30 ml PO Q4H PRN PRN Reason: INDIGESTION Multivitamins (Theragran Tab*) 1 tab PO DAILY [facility] Last Admin: 07/03/18 08:45 Dose: 1 tab Nicotine (Nicotine Patch 14 Mg/24 Hr*) 1 patch TRANSDERM DAILY@0800 [facility] Last Admin: 07/03/18 08:45 Dose: 1 patch Pharmacy Profile Note (Nicotine Patch Removal Note*) 1 note PATCH OFF 2100 [facility] Last Admin: 07/03/18 00:35 Dose: Not Given Sertraline HCl (Zoloft*) 50 mg PO DAILY [facility] Last Admin: 07/03/18 08:45 Dose: 50 mg - Discharge Plan Discharge Plan: Drug/Alcohol Rehab
[2018-07-04] MEDS: Nicotine Patch Removal NOTE PATCH OFF SCH ×2 (00:53→21:26)
[2018-07-04 08:20] VITALS: BP 99/63
[2018-07-04] MEDS: Sertraline* 50 MG TAB PO SCH (08:49)
[2018-07-04] MEDS: Nicotine PATCH 14 MG/24 HR* PATCH TRANSDERM SCH (08:49)
[2018-07-04] MEDS: Vitamin THERAPEUTIC TAB PO SCH (08:49)
--- NOTE | 2018-07-04 10:50 | PN ---
Subjective - Subjective Date of Service: 07/04/18 Service Type: 49527 Hosp care 35 min high complexity Subjective: Nursing Report: Patient was visible on unit, no chemical restraints or PRNs. Slept overnight without incident. He is not attending group activities. CC: " I am going to groups" Patient was seen and evaluated in the comfort room, he reported that he goes to some of the groups and is not sure why staff claims otherwise. He was reminded of the comfort room policy and the requirement to attend groups. He reported feeling tired and sleeping yesterday afternoon. He describes the high from crack cocaine as lasting 3 minutes and is the best feeling in the world and makes him forget about all the cares in the world but has to continue to use or will turn into depression. He spoke about the things he enjoys which include fishing and playing video games. He wants to focus on himself and move out of [place] so that he is not encouraged to use crack again. The patient reported he feels safe on the unit and is interacting with peers. He reported having adequate appetite and sleep. Per nursing no behavioral issues or overnight events reported. Patient reported that he is tolerating medications without side effects. Objective - General Observations Appears Stated Age: Yes Stature: WNL, Overweight Posture: WNL Eye Contact: Average Behavior/Activity: WNL - Interaction Observations Attitude Towards Examiner: Cooperative Stated Mood: Dysphoric Affect: Blunted Speech Pattern/Tone: Clear Thought Process: Coherent Perception: WNL Thought Content: WNL Hallucination Type: None Delusion Type: None - Cognitive Function Orientation: A&O x 4 Level of Consciousness: Awake - Medication Compliance Cooperative with Inpatient Medication Regimen: Yes - Group Participation Participates in Group Activities: Partial Assessment - Assessment Merits Inpatient Hospitalization: For Immediate Safety Inpatient DSM-V Dx: F14.24 Clinical Impression: 33 year old male with a history of depression and several years of daily crack cocaine use presented to suicidal ideation and plan to hang himself. Plan - Plan Treatment Plan: Name: TAI ASHRAF Birthdate: 1985 [id number] # Q30 minute observation with staff pass and computer access (contingent on going to groups). # The patient requires inpatient admission at this time to assure safety, receive treatment and work toward stabilization. # Obtain collateral information once release is signed. Patient doesnt have family support system. # Start wellbutrin 100mg daily to assist with nicotine cravings , cocaine withdrawal, and fatigue. # Continue zoloft 50mg daily for depression. # Collaboration with Social Work to assist with disposition and after care. #Substance Abuse resources referrals completed, awaiting response. #Tobacco use disorder: Nicotine supplement offered and put in place. Sodium 136 mmol/L (135-145) 06/29/18 05:47 Potassium 4.4 mmol/L (3.5-5.0) 06/29/18 05:47 BUN 13 mg/dL (6-24) 06/29/18 05:47 Creatinine 0.72 mg/dL (0.67-1.17) 06/29/18 05:47 Hemoglobin A1c 5.8 % (4.0-5.6) H 07/01/18 07:52 Calcium 9.3 mg/dL (8.6-10.3) 06/29/18 05:47 AST 16 U/L (13-39) 06/29/18 05:47 ALT 14 U/L (7-52) 06/29/18 05:47 Triglycerides 63 mg/dL 07/01/18 07:52 Cholesterol 192 mg/dL 07/01/18 07:52 LDL Cholesterol 81 mg/dL 07/01/18 07:52 Vital Signs Temp Pulse Resp BP Pulse Ox 97.3 F 73 16 99/63 100 07/04/18 07:45 07/04/18 07:45 07/04/18 10:55 07/04/18 07:45 07/04/18 07:45 Continued Medication Management: Start Medication Medications: Current Medications Acetaminophen (Tylenol Tab*) 650 mg PO Q4H PRN PRN Reason: PAIN Al Hydrox/Mg Hydrox/Simethicone (Maalox Plus*) 30 ml PO Q4H PRN PRN Reason: INDIGESTION Bupropion HCl (Wellbutrin Sr Tab*) 100 mg PO DAILY [facility] Multivitamins (Theragran Tab*) 1 tab PO DAILY [facility] Last Admin: 07/04/18 08:49 Dose: 1 tab Nicotine (Nicotine Patch 14 Mg/24 Hr*) 1 patch TRANSDERM DAILY@0800 [facility] Last Admin: 07/04/18 08:49 Dose: 1 patch Pharmacy Profile Note (Nicotine Patch Removal Note*) 1 note PATCH OFF 2100 [facility] Last Admin: 07/04/18 00:53 Dose: Not Given Sertraline HCl (Zoloft*) 50 mg PO DAILY [facility] Last Admin: 07/04/18 08:49 Dose: 50 mg - Discharge Plan Discharge Plan: Inpatient Hospitalization
[2018-07-04] MEDS: buPROPion SR TAB.SR* 100 MG PO SCH (11:54)
[2018-07-04] MEDS: Acetaminophen TAB* 325 MG PO PRN ×2 (12:20→17:40)
--- NOTE | 2018-07-04 16:23 | PN ---
BSU: Group Therapy Note - Service Type Service Type: 23394 Group Psychotherapy - Medication Education Group: Patient presented as disruptive in discussion and needed repeated redirection to attend to presented materials. He abruptly left the group chcf through.
[2018-07-05] MEDS: buPROPion SR TAB.SR* 100 MG PO SCH (08:33)
[2018-07-05] MEDS: Nicotine PATCH 14 MG/24 HR* PATCH TRANSDERM SCH (08:33)
[2018-07-05] MEDS: Sertraline* 50 MG TAB PO SCH (08:34)
[2018-07-05] MEDS: Vitamin THERAPEUTIC TAB PO SCH (08:34)
--- NOTE | 2018-07-05 12:46 | DS ---
Subjective - Subjective Service Types: 25770 [facility] Day [facility]mt complex over 30 min Discharge Date: 07/05/18 Subjective: CC: "I am motivated to stop using" Patient reported he was excited to stop using crack and go to rehab. He looks forward to one day getting his own place. Justification for admission: Immediate Safety. CC " I want to " The patient was brought to [facility] by police after expressing that he was going to kill himself. His plan to end his life involved hanging himself with a bed sheet. Recent stressors include getting into a fight with his girlfriends sister. He feels that she controls him and makes him sleep outside sometimes. He prefers that she doesnt visit him while he is here. He reported that he doesnt have any reason to live and if he had a gun he would shoot himself. He denied access to firearms or stockpiles of medications. He reported poor sleep and adequate appetite. The patient denied homicidal ideation intent or plan. The patient denied auditory and/ or visual hallucinations. MDD Patient has been feeling depressed and reported feelings of sadness lasting more than 2 weeks. He likes to fish for fun and has not been able to feel enjoyment. He reported having feelings of hopelessness and worthlessness. He denied unintentional weight loss and appetite. He reported decreased concentration and recurrent thoughts of . Anxiety Reported having panic attacks in the past that present as his heart feeling that it is beating out of his chest ,with sweaty palms, and shallow breathing. He feeling restless, high strung, or worrying too much most of the time. Bipolar Denied symptoms of curtis such as having many ideas at once. Denied increased talkativeness where no one can interrupt. Denied feeling irritable most of the time while having an persistent abundance of energy most of the day without the use of energy drinks, stimulants, or recreational drug use. Denied an increase in intensity in goal directed activities. Denied having the decreased need to sleep for days , having prolonged elevated heighted mood , or feeling on top of the world. Denied impulsive risky sexual encounters. Denied spending money recklessly , going on spending sprees wiping out savings. Denied impulsively traveling out of town or country, having super mejia, and unrealistic wealth or fame. Psychosis Does not endorse hearing things that other people do not hear or seeing things other people do not see. Denied feeling that TV is making references. Denied feeling that people are spying , following , or reading their thoughts. Phobias: Patient denied having excessive fear of a particular thing or situation. Eating disorders: Patient denied having excessive eating habits or feelings of guilt after eating. Denied repeated episodes of self induced vomiting after eating. PTSD Denied flashbacks, nightmares and avoidance of a prior traumatic event. PAST PSYCHIATRIC HISTORY: Prior Diagnosis : Cocaine use disorder, Major depressive Disorder. Tobacco use disorder History of past Psychiatric Hospitalizations: 4 prior psychiatric admissions. Last hospitalization in [place] in 2018. History of past suicide/homicide attempts : 1 past suicide attempt that involved overdosing on pills. Denied past homicidal incidents. Outpatient follow-up: None at this time Medications: Past trials of medications include zoloft that he never took following discharge Guardianship: None. FAMILY HISTORY: - Suicide: Denied family history of suicide. - Mental illness: Denied a history of mental health in immediate family members. - Substance abuse: His sister uses heroin SUBSTANCE ABUSE HISTORY: - EtOH: Drinks 2-3 24oz beers daily. Denied seizures, black outs, legal issues, DTs. - Tobacco: Smokes 1 ppd - Cannabis: uses on weekly basis - Heroin: used on one occasion - Cocaine: smokes crack cocaine daily beginning in 2014. - Substance abuse treatment: Denied past substance abuse treatment SOCIAL HISTORY: Born in [facility] and moved to [place] due to his father finding work. He denied a history of sexual and or physical abuse. His mother from heart disease and his father lives in [place]. He completed 2 years of College at [employer]. Currently lives with his girlfriend in [facility]. He has no children. - Legal history: Denied - service history: Denied PAST MEDICAL HISTORY: Denied heart disease, diabetes, cancer and/ or other medical conditions. - Allergies: Denied drug or other allergies. Physical Exam: Please see ED note Mental Status Exam on Admission APPEARANCE : 33 year old male who appears stated age. Patient is obese wearing [facility] hospital provided clothing has dreadlocks and poor hygiene and grooming. BEHAVIOR: Cooperative , calm EYE CONTACT: Fair PSYCHOMOTOR ACTIVITY: No psychomotor agitation or retardation. MOVEMENTS: No abnormal movements observed. SPEECH : Normal rate, rhythm, volume and tone. MOOD : "sad " AFFECT : Type is depressed, Range is restricted with shallow depth Mood Congruent Stable THOUGHT PROCESS: Formulated and organized in a logical, linear goal directed manner. No flight of ideas, neologism (made up words) , perseveration , tangential , loose associations , or circumstantiality. THOUGHT CONTENT: no delusions, obsessions, phobias or preoccupations. PERCEPTION: No current auditory or visual hallucinations. Doesnt appear to be responding to internal cues. No evidence of depersonalization , de-realization, or illusions SUICIDALITY Current suicidal ideation with plan. HOMICIDALITY Denied homicidal ideation, intent or plan. Insight/judgment: Poor insight and judgment ORIENTATION: Oriented to self, location, and time. Diagnosis on Admission: Major depressive Disorder, severe. Cocaine use disorder without perceptual disturbances. Tobacco use disorder, mild. Diagnosis on Discharge: Substance induced mood disorder in partial remission. Major depressive Disorder, in partial remission. Cocaine use disorder without perceptual disturbances. Tobacco use disorder, mild. Condition at the time of discharge: At the time of discharge patient showed improvement of sleep and appetite. The patient was not a danger to self or others. The patient denied suicidal ideation , intent or plan. The patient denied homicidal targets, ideation, intent or plan. This patient participated in psychosocial rehabilitation and gained some insight into problems. The patient gained insight into mental illness, triggers, and treatment. The patient took medication as prescribed. The patient denied side effects of medication and objective signs of side effects were not evident. Therapy Resources were offered to the patient. Patient was given a supply of prescriptions at the time of discharge. The patient plans to attend follow up care with the follow up arrangements that were discussed and put in place. Patient was asked to keep appointments as scheduled, take medication as prescribed, have routine follow up care with their primary care physician and refrain from any use of alcohol or drugs. Objective - General Observations Appearance: Disheveled, Neat Appears Stated Age: Yes Stature: Overweight Posture: Slumped Eye Contact: Average Behavior/Activity: WNL - Interaction Observations Attitude Towards Examiner: Cooperative Stated Mood: Euthymic Affect: Blunted Speech Pattern/Tone: Clear Thought Process: Coherent Perception: WNL Thought Content: WNL Delusion Type: None Treatment Course & Assessment Clinical Course & Impression: Hospital course part A: 33 year old male with a history of depression and several years of daily crack cocaine use presented to suicidal ideation and plan to hang himself. Hospital course part B: Labs ordered included CBC, CMP, UDS, TSH, HBA1c, TSH, Toxicology screen, Urine analysis, and lipid profile. Labs were reviewed and did not require the need for further evaluation. Vital signs were monitored during the course of admission. The patient was admitted to the adult behavioral unit and placed on 15 minute check for safety. At a later time the patient was on Q30 minute observation and staff pass privileges. With those limits being extended , there were no occurrence of behavioral incidents. The patient did well on the unit and went to groups. Interacted with peers had adequate sleep and regular appetite. Tolerated medication changes without side effects. Group therapy and services were offered. The risks, benefits, and alternative treatment options were discussed as well as of the risks of refusing treatment. Treatment associated risks discussed. After this discussion made an acknowledgement of this understanding. Follow up care appointments were put in place for follow up care. The importance of monitoring for metabolic changes was discussed and acknowledgement of this understanding was made. Improvements in patient from the time of admission include: Improved affect, sleep and decrease in anxiety. No longer suicidal and no longer having feelings of hopelessness. The patient expressed readiness for discharge home. The patient presents with a broader range of affect, and the absence of depressed mood, delusions, perceptual disturbances. The patient denied suicidal and or homicidal ideation intent or plan. Overall, the patient responded well to inpatient treatment as evidenced by their report of strengthening of coping mechanisms, reduced distress, and more positive outlook on circumstances. Of note there was an improvement of recognizing how emotional state can effect mood and behavior. Safety precautions were put in place which included involving the patient and their family to closely monitor for changes in mental state. In addition, implementing follow up care, screening for the need to remove/securing firearms , weapons and stockpile of medications. Patient instructed to immediately call 911 should any safety concerns arise. The patient was advised of the 24 hour / 7 days a week availability of the emergency room and to call 911 in the event of an emergency such as being suicidal and/ or homicidal. The patient was informed of the contact information for [facility], Suicide Prevention [facility] Crisis Services, National Suicide Prevention Lifeline, [facility], Alcoholics Anonymous, and [facility]. Medications started included zoloft 50mg daily and wellbutrin for cocaine withdrawal and to be continued for 7 days upon discharge. Collateral information was unable to be obtained due to lack of support system. Patient plans to stop using crack cocaine. He identified stressors in his life to be often fighting with his girlfriend and using crack cocaine. At first he was not attending all the group and was reminded of the unit protocol and comfort room privileges. Patient was able to identify how using crack cocaine alters his mood. Patient will be discharged to [facility] substance abuse rehab center in [place] Follow up appointment at [facility] care connections. Patient informed of follow up appointment times. See more details for follow up care in the discharge plan. Risk factors: Single, history of mental illness, history of suicide attempt, substance abuse, lacks strong support system. Protective factors: Currently no suicidal ideation, intent or plan. No history of service. Currently no feelings of hopelessness, not in an occupation of social isolation, doesnt have multiple medical conditions, no family history of suicide, doesnt have access to firearms. Doesnt have command hallucinations and or psychotic features at this time. Not a anniversary of a loss of a loved one. Currently future orientated. Patient engaged in treatment and compliant with medication. Merits Inpatient Hospitalization: No Clear for Discharge: Adequate Clinical Respons Inpatient DSM-V Dx: F14.24 Discharge Planning - Discharge Planning Discharge Plan: Drug/Alcohol Rehab Recommendations for Continuing Care: Substance Abuse Counseling Medications: Current Medications Acetaminophen (Tylenol Tab*) 650 mg PO Q4H PRN PRN Reason: PAIN Last Admin: 07/04/18 17:40 Dose: 650 mg Al Hydrox/Mg Hydrox/Simethicone (Maalox Plus*) 30 ml PO Q4H PRN PRN Reason: INDIGESTION Bupropion HCl (Wellbutrin Sr Tab*) 100 mg PO DAILY [facility] Last Admin: 07/05/18 08:33 Dose: 100 mg Multivitamins (Theragran Tab*) 1 tab PO DAILY [facility] Last Admin: 07/05/18 08:34 Dose: 1 tab Nicotine (Nicotine Patch 14 Mg/24 Hr*) 1 patch TRANSDERM DAILY@0800 [facility] Last Admin: 07/05/18 08:33 Dose: 1 patch Pharmacy Profile Note (Nicotine Patch Removal Note*) 1 note PATCH OFF 2100 [facility] Last Admin: 07/04/18 21:26 Dose: 1 note Sertraline HCl (Zoloft*) 50 mg PO DAILY [facility] Last Admin: 07/05/18 08:34 Dose: 50 mg Discharge Planning: Prescriptions provided for discharge [] Yes [x] No Follow up care details as per social work arrangements. Patient response to discharge plan: [] eager for discharge [x] agreeable with discharge plan [] ambivalent about discharge [] disagrees with discharge today
== END 2018-07-05 13:25 | DRG 774 ==
LOC: ED 05:08 → BSU 11:58
PROVIDERS: ADMIT Psychiatry & Neurology Psychiatry; ATTEND Psychiatry & Neurology Psychiatry
PROC: GZHZZZZ Group Psychotherapy (ICD-10-PCS; principal; 2018-07-05)
DX: F14.24 Cocaine dependence with cocaine-induced mood disorder (principal); R45.851 Suicidal ideations; F32.2 Major depressive disorder, single episode, severe without psychotic features; F17.210 Nicotine dependence, cigarettes, uncomplicated; E66.9 Obesity, unspecified; Z68.34 Body mass index [BMI] 34.0-34.9, adult; Z72.89 Other problems related to lifestyle; Z82.49 Family history of ischemic heart disease and other diseases of the circulatory system; Z81.3 Family history of other psychoactive substance abuse and dependence; Z91.5 Personal history of self-harm
CPT/HCPCS: 36415; 80053; 80061; 80307; 80320; 80329; 81003; 81015; 83036; 84443; 85025; 90853; 99222; 99231; 99233; 99238; 99284; A9270-GY; G0480; J2060

== ENCOUNTER 2018-12-19 10:17 | Emergency (ER) | payer MEDICAID, OTHER ==
[2018-12-19 10:28] VITALS: BP 161/116
--- NOTE | 2018-12-19 10:28 | ED ---
Psychiatric Complaint - HPI Summary HPI Summary: 33 year old M brought in by EMS and [place] [employer] complains of suicidal ideation since today. Per law enforcement, patient was discharged from rehab 6 months ago. Today, patient became suicidal after getting into an argument with his ex girlfriend with whom he has been living. Patient states he did not want to physically attack his ex girlfriend so he left her house and went to [facility] for help because he started his job 2 days ago and doesn't have a place to live. Per patient, DSS stated that they were unable to help him, so patient left DSS to go to the [facility]. Per patient, police officers approached him and brought him to the ED. Per law enforcement, patient was making suicidal statements, and stating that he would use drugs and alcohol to commit suicide. Patient states he hasn't used drugs or alcohol since being discharged from rehab. The patient has no pain or other complaints. The patient rates the pain 0/10 in severity. Symptoms aggravated by recent stress. Symptoms alleviated by nothing. - History Of Current Complaint Hx Obtained From: Patient, Other: - law enforcement Onset/Duration: Lasting Hours, Still Present Timing: Constant Severity Currently: None Aggravating Factor(s): Recent Stress Alleviating Factor(s): Nothing Has Suicidal: Reports: Thoughts, With A Plan - Allergies/Home Medications Allergies/Adverse Reactions: Allergies Allergy/AdvReac Type Severity Reaction Status Date / Time No Known Allergies Allergy Verified 09/06/16 01:28 Home Medications: Home Medications Acetaminophen TAB* [Tylenol TAB*] 325 mg PO Q4H PRN 12/19/18 [History Confirmed 12/19/18] Ibuprofen TAB* [Advil TAB*] 200 mg PO Q6H PRN 12/19/18 [History Confirmed ] Iron 18 mg PO DAILY 12/19/18 [History Confirmed 12/19/18] buPROPion SR TAB* [Wellbutrin SR TAB*] 300 mg PO DAILY 12/19/18 [History Confirmed 12/19/18] traZODone TAB* [Desyrel TAB*] 100 mg PO BEDTIME PRN 12/19/18 [History Confirmed 12/19/18] PMH/Surg Hx/FS Hx/Imm Hx Endocrine/Hematology History: Denies: Hx Anticoagulant Therapy, Hx Diabetes, Hx Thyroid Disease Cardiovascular History: Denies: Hx Hypertension, Hx Pacemaker/ICD Respiratory History: Denies: Hx Asthma, Hx Chronic Obstructive Pulmonary Disease (COPD) History: Denies: Hx Renal Disease Sensory History: Reports: Hx Contacts or Glasses - Does not have with him Denies: Hx Hearing Aid Opthamlomology History: Reports: Hx Contacts or Glasses - Does not have with him Neurological History: Denies: Hx Dementia, Hx Seizures Psychiatric History: Reports: Hx Inpatient Treatment - [facility] [place] in 2017, Hx Substance Abuse - cocaine Denies: Hx Eating Disorder, Hx of Violent Episodes Against Others - denies - Surgical History Surgery Procedure, Year, and Place: None - Immunization History Date of Tetanus Vaccine: UNKNOWN Date of Influenza Vaccine: NO Infectious Disease History: Denies: Hx Hepatitis, Hx Human Immunodeficiency Virus (HIV) - Family History Known Family History: Positive: Cardiac Disease - mother of [place] - Social History Alcohol Use: None Hx Substance Use: Yes Substance Use Type: Reports: Cocaine, Marijuana Hx Tobacco Use: Yes Smoking Status (MU): Heavy Every Day Tobacco Smoker Type: Cigarettes Amount Used/How Often: 5 per day Review of Systems Negative: Fever Positive: Other - suicidal ideation, suicidal plan All Other Systems Reviewed And Are Negative: Yes Physical Exam - Summary Physical Exam Summary: Constitutional: Well-developed, Well-nourished, Alert. (-) Distressed. The patient does not appear intoxicated Skin: Warm, Dry HENT: Normocephalic; Atraumatic Eyes: Conjunctiva normal Neck: Musculoskeletal ROM normal neck. (-) JVD, (-) Stridor, (-) Tracheal deviation Cardio: Rhythm regular, rate normal, Heart sounds normal; Intact distal pulses; The pedal pulses are 2+ and symmetric. Radial pulses are 2+ and symmetric. (-) Murmur Pulmonary/Chest wall: Effort normal. (-) Respiratory distress, (-) Wheezes, (-) Rales Abd: Soft, (-) tenderness, (-) Distension, (-) Guarding, (-) Rebound Musculoskeletal: (-) Edema Lymph: (-) Cervical adenopathy Neuro: Alert, Oriented x3 Psych: He is depressed and tearful Triage Information Reviewed: Yes Vital Signs Reviewed: Yes Procedures - Sedation Patient Received Moderate/Deep Sedation with Procedure: No Diagnostics - Laboratory Result Diagrams: 12/19/18 10:39 12/19/18 10:39 Lab Statement: Any lab studies that have been ordered have been reviewed, and results considered in the medical decision making process. Course/Dx - Course Course Of Treatment: 33 year old M complains of suicidal ideation since today after getting into an argument with his ex girlfriend. Patient went to DSS after the argument but they told him they were unable to help. DSS called law enforcement who state that patient was making suicidal statements, and stating that he would use drugs and alcohol to commit suicide. Bloodwork results with no significant abnormalities except for Hgb 13.3, Hct 40, absolute lymphs 0.9. Toxicology results with no significant abnormalities. Per mental health commercial real estate associate who reviewed case with Dr. Gustafson, psychiatry, the patient will be discharged. Final dx mood disorder. - Differential Dx/Clinical Impression Provider Diagnosis: Mood disorder - Physician Notifications Time Discussed With Above Provider: 13:45 Instructed by Provider To: Other - [facility] mental health commercial real estate associate, reviewed case with Dr. Gustafson, psychiatry. They recommend discharge. Discharge ED - Sign-Out/Discharge Documenting (check all that apply): Patient Departure - Discharge - Discharge Plan Condition: Stable Disposition: HOME Referrals: No Primary Care Phys,NOPCP [Primary Care Provider] - - Billing Disposition and Condition Condition: STABLE Disposition: Home - Attestation Statements Document Initiated by Andrea: Yes Documenting Scribe: Mitzy Andrade Provider For Whom Andrea is Documenting (Include Credential): Daya Chen MD Scribe Attestation: Mitzy Witt, scribed for Daya Ramirez MD on 12/19/18 at 1435. Scribe Documentation Reviewed: Yes Provider Attestation: The documentation as recorded by the Mitzy hopkins accurately reflects the service I personally performed and the decisions made by me, Daya Ramirez MD Status of Scribe Document: Viewed
[2018-12-19 10:46] LABS: ABS Lymphocytes 0.9 10^3/ul (1.0-4.8); ABS Monocytes 0.3 10^3/ul (0-0.8); ABS Neutrophils 2.6 10^3/ul (1.5-7.7); Eosinophil % 0.2 %; Hematocrit 40 % (42-52); Hemoglobin 13.3 g/dL (14.0-18.0); Lymphocyte % 24.4 %; Mean Corpuscular HGB Conc 33 g/dL (31-36); Mean Corpuscular Hemoglobin 28 pg (27-31); Mean Corpuscular Volume 83 fL (80-94); Mean Platelet Volume 7.7 fL (7.4-10.4); Nucleated Red Blood Cells % 0.1; Platelet Count 212 10^3/uL (150-450); Red Cell Distribution Width 14 % (10-15); White Blood Count 3.9 10^3/uL (3.5-10.8)
[2018-12-19 11:03] LABS: ALT 16 U/L (7-52); AST 21 U/L (13-39); Albumin 4.5 g/dL (3.2-5.2); Albumin/Globulin Ratio 1.2 (1-3); Alkaline Phosphatase 90 U/L (34-104); Anion Gap 7 mmol/L (2-11); BUN/Creatinine Ratio 11.1 (8-20); Blood Urea Nitrogen 9 mg/dL (6-24); CO2 Carbon Dioxide 27 mmol/L (22-32); Calcium 10.1 mg/dL (8.6-10.3); Chloride 104 mmol/L (101-111); EGFR African American 134.5 (>60); EGFR Non-African American 111.1 (>60); Globulin 3.7 g/dL (2-4); Glucose 100 mg/dL (70-100); Sodium 138 mmol/L (135-145); Total Protein 8.2 g/dL (6.4-8.9)
[2018-12-19 11:36] LABS: TSH (Thyroid Stimulating Horm) 1.23 mcIU/mL (0.34-5.60)
[2018-12-19 11:47] LABS: Acetaminophen < 15 mcg/mL; Alcohol < 10 mg/dL (<10); Salicylate < 2.50 mg/dL (<30)
== END 2018-12-19 14:18 | disposition home or self-care (01) ==
LOC: ED 10:17
DX: F39 Unspecified mood [affective] disorder (principal); R45.851 Suicidal ideations; F17.210 Nicotine dependence, cigarettes, uncomplicated
CPT/HCPCS: 36415; 80053; 80320; 80329; 84443; 85025; 99285; G0480

== ENCOUNTER 2019-05-08 04:00 | Emergency (ER) | payer OTHER ==
--- NOTE | 2019-05-08 04:10 | ED ---
Psychiatric Complaint - HPI Summary HPI Summary: 34 year old M presenting to [facility] via EMS with a chief complaint of wanting to hurt others. Patient reports feeling angry and wanting to hurt the police. He also reports a sore throat and headache. Per EMS the patient has not been taking his medications for 1 month. The patient states that he broke up with his girlfriend yesterday and she called the police. Medication list reviewed. Allergy list reviewed. - History Of Current Complaint Hx Obtained From: Patient Onset/Duration: Still Present Timing: Constant Character: Angry - Allergies/Home Medications Allergies/Adverse Reactions: Allergies Allergy/AdvReac Type Severity Reaction Status Date / Time No Known Allergies Allergy Verified 05/08/19 04:26 Home Medications: Home Medications Acetaminophen TAB* [Tylenol TAB*] 325 mg PO Q4H PRN 12/19/18 [History Confirmed 05/08/19] Ibuprofen TAB* [Advil TAB*] 200 mg PO Q6H PRN 12/19/18 [History Confirmed ] Iron 18 mg PO DAILY 12/19/18 [History Confirmed 05/08/19] buPROPion SR TAB* [Wellbutrin SR TAB*] 300 mg PO DAILY 12/19/18 [History Confirmed 05/08/19] traZODone TAB* [Desyrel TAB*] 100 mg PO BEDTIME PRN 12/19/18 [History Confirmed 05/08/19] PMH/Surg Hx/FS Hx/Imm Hx Endocrine/Hematology History: Denies: Hx Anticoagulant Therapy, Hx Diabetes, Hx Thyroid Disease Cardiovascular History: Denies: Hx Hypertension, Hx Pacemaker/ICD Respiratory History: Denies: Hx Asthma, Hx Chronic Obstructive Pulmonary Disease (COPD) History: Denies: Hx Renal Disease Sensory History: Reports: Hx Contacts or Glasses - Does not have with him Denies: Hx Hearing Aid Opthamlomology History: Reports: Hx Contacts or Glasses - Does not have with him Neurological History: Denies: Hx Dementia, Hx Seizures Psychiatric History: Reports: Hx Inpatient Treatment - [facility] [place], Hx Substance Abuse - cocaine Denies: Hx Eating Disorder, Hx of Violent Episodes Against Others - denies - Surgical History Surgical History: None Surgery Procedure, Year, and Place: None - Immunization History Date of Tetanus Vaccine: UNKNOWN Date of Influenza Vaccine: NO Infectious Disease History: Denies: Hx Hepatitis, Hx Human Immunodeficiency Virus (HIV) - Family History Known Family History: Positive: Cardiac Disease - mother of [place] - Social History Alcohol Use: None Hx Substance Use: Yes Substance Use Type: Reports: Cocaine, Marijuana Substance Use Comment - Amount & Last Used: hx crack cocaine/sober for 6 months Hx Tobacco Use: Yes Smoking Status (MU): Heavy Every Day Tobacco Smoker Type: Cigarettes Amount Used/How Often: 5 per day Review of Systems Positive: Sore Throat Positive: Headache Positive: Other - Wants to hurt others All Other Systems Reviewed And Are Negative: Yes Physical Exam - Summary Physical Exam Summary: Appearance: Well-appearing, Well-nourished, lying in bed comfortable Skin: Warm, dry, no obvious rash Eyes: sclera anicteric, no conjunctival pallor HENT: mucous membranes moist Neck: deferred Respiratory: No signs of respiratory distress Cardiovascular: Appears well perfused, pulses are nml Abdomen: deferred Musculoskeletal: Moving all 4 extremities without obvious discomfort Neurological: Awake and alert, mentation is normal, speech is fluent and appropriate Psychiatric: affect is normal, does not appear anxious or depressed Triage Information Reviewed: Yes Vital Signs Reviewed: Yes Procedures - Sedation Patient Received Moderate/Deep Sedation with Procedure: No Diagnostics - Laboratory Result Diagrams: 05/08/19 04:32 05/08/19 04:32 Lab Statement: Any lab studies that have been ordered have been reviewed, and results considered in the medical decision making process. Course/Dx - Course Course Of Treatment: 34 year old M presenting to [facility] via EMS with a chief complaint of wanting to hurt others. Patient reports feeling angry and wanting to hurt the police. He also reports a sore throat and headache. Physical exam findings reveal no abnormalities. Laboratory results with no significant abnormalities except for an Hgb of 13.5, Hct of 40, urine blood of 1+ A, ur squamous epith cells present A, urine cocaine screen presumptive positive A, and serum alcohol of 55. In the ED course, the patient was given Tylenol 975 mg. Patient will be signed out to Dr. March pending MHE and disposition. - Differential Dx/Clinical Impression Provider Diagnosis: Homicidal ideation Discharge ED - Sign-Out/Discharge Documenting (check all that apply): Sign-Out Patient Signing out patient TO: Ayo March - Pending MHE and disposition. - Discharge Plan - Attestation Statements Document Initiated by Scribe: Yes Documenting Scribe: Willow Dave Provider For Whom Scribe is Documenting (Include Credential): Parth Roca MD Scribe Attestation: IWillow, scribed for Parth Roca MD on 05/08/19 at 0638. Status of Scribe Document: Ready
[2019-05-08] MEDS ORDERED: Acetaminophen TAB* 325 MG PO ONE (04:38)
[2019-05-08 04:42] LABS: ABS Basophils 0.1 10^3/ul (0-0.2); ABS Lymphocytes 2.1 10^3/ul (1.0-4.8); ABS Monocytes 0.4 10^3/ul (0-0.8); ABS Neutrophils 4.2 10^3/ul (1.5-7.7); Eosinophil % 0.5 %; Hematocrit 40 % (42-52); Hemoglobin 13.5 g/dL (14.0-18.0); Lymphocyte % 30.4 %; Mean Corpuscular HGB Conc 34 g/dL (31-36); Mean Corpuscular Hemoglobin 29 pg (27-31); Mean Corpuscular Volume 87 fL (80-94); Mean Platelet Volume 8.4 fL (7.4-10.4); Nucleated Red Blood Cells % 0.1; Platelet Count 221 10^3/uL (150-450); Red Blood Count 4.58 10^6 /uL (4.18-5.48); Red Cell Distribution Width 14 % (10-15); White Blood Count 6.8 10^3/uL (3.5-10.8)
[2019-05-08 04:59] LABS: ALT 20 U/L (7-52); AST 24 U/L (13-39); Albumin 4.6 g/dL (3.2-5.2); Albumin/Globulin Ratio 1.2 (1-3); Alkaline Phosphatase 83 U/L (34-104); Anion Gap 11 mmol/L (2-11); BUN/Creatinine Ratio 19.7 (8-20); Blood Urea Nitrogen 14 mg/dL (6-24); CO2 Carbon Dioxide 24 mmol/L (22-32); Calcium 9.7 mg/dL (8.6-10.3); Chloride 101 mmol/L (101-111); EGFR African American 155.6 (>60); EGFR Non-African American 128.6 (>60); Globulin 3.8 g/dL (2-4); Glucose 88 mg/dL (70-100); Potassium 3.9 mmol/L (3.5-5.0); Sodium 136 mmol/L (135-145); Total Protein 8.4 g/dL (6.4-8.9)
[2019-05-08 05:09] LABS: Acetaminophen < 15 mcg/mL; Alcohol 55 mg/dL (<10); Salicylate < 2.50 mg/dL (<30)
[2019-05-08 05:24] LABS: TSH (Thyroid Stimulating Horm) 1.68 mcIU/mL (0.34-5.60)
[2019-05-08 05:31] LABS: Urine Appearance Clear; Urine Bilirubin Negative (Negative); Urine Blood 1+ (Negative); Urine Color Yellow; Urine Glucose Negative (Negative); Urine Ketones Negative (Negative); Urine Nitrite Negative (Negative); Urine Protein Negative (Negative); Urine Specific Gravity 1.014 (1.010-1.030); Urine Urobilinogen Negative (Negative)
[2019-05-08 05:34] LABS: Urine Bacteria Absent (Absent); Urine Red Blood Cell Trace(0-2/hpf) (Absent); Urine Squamous Epithelial Cell Present (Absent); Urine White Blood Cell Trace(0-5/hpf) (Absent)
[2019-05-08 05:46] LABS: Urine Benzodiazepine Screen None Detected (None Detect); Urine Opiates Screen None Detected (None Detect)
--- NOTE | 2019-05-08 07:04 | ED ---
Progress - Progress Note Progress Note: Patient is a sign-out at 07:00 on 05/08/[address] Parth Roca to Dr. Ayo March, at shift change pending mental health evaluation and disposition. At 10:34, patient states he does not want to hurt anybody. At 10:00, integrity manager reports that Dr. Karthik Gustafson reviewed the patients case and patient will discharged with a diagnosis of substance abuse disorder. Patient will be discharged with a diagnosis of substance abuse disorder. Re-Evaluation - Re-Evaluation First Eval Re-Evaluation Time: 10:34 Change: Improved Comment: At 10:34, patient states he does not want to hurt anybody. Course/Dx - Course Course Of Treatment: Patient is a sign-out at 07:00 on 05/08/[address] Parth Roca to Dr. Ayo March, at shift change pending mental health evaluation and disposition. At 10:00, integrity manager reports that Dr. Karthik Gustafson reviewed the patients case and patient will discharged with a diagnosis of substance abuse disorder. At 10:34, patient states he does not want to hurt anybody. Patient will be discharged with a diagnosis of substance abuse disorder. - Diagnoses Provider Diagnoses: Homicidal ideation, Substance abuse - Provider Notifications Discussed Care Of Patient With: Karthik Gustafson - At 10:00, integrity manager reports that Dr. Karthik Gustafson reviewed the patients case and patient will discharged with a diagnosis of substance abuse disorder. Time Discussed With Above Provider: 10:00 Instructed by Provider To: Other - Discharge Discharge ED - Sign-Out/Discharge Documenting (check all that apply): Patient Departure - Discharge, Receiving Sign-Out Receiving patient FROM: Parth Roca - Patient is a sign-out at 07:00 on 05/[address] Parth Roca to Dr. Ayo March, at shift change pending mental health evaluation and disposition. - Discharge Plan Condition: Stable Disposition: HOME Referrals: [facility] [Outside] - Attestation Statements Document Initiated by Scribe: Yes Documenting Scribe: Nikole Mckeon Provider For Whom Scribe is Documenting (Include Credential): Ayo March MD Scribe Attestation: Nikole Witt, scribed for Ayo March MD on 05/08/19 at 1043. Status of Scribe Document: Ready
[2019-05-08 10:51] VITALS: BP 134/88
== END 2019-05-08 10:50 | disposition home or self-care (01) ==
LOC: ED 04:00
DX: R45.850 Homicidal ideations (principal); R51 Headache; J02.9 Acute pharyngitis, unspecified; F19.10 Other psychoactive substance abuse, uncomplicated; F17.210 Nicotine dependence, cigarettes, uncomplicated; Z79.899 Other long term (current) drug therapy
CPT/HCPCS: 36415; 80053; 80307; 80320; 80329; 81003; 81015; 84443; 85025; 87086; 99285; A9270-GY; G0480

== ENCOUNTER 2019-05-31 20:18 | Emergency (ER) | payer OTHER ==
[2019-05-31] MEDS ORDERED: diPHENhydraMINE IV* 50 MG/ML 1 ml VIAL (BENADRYL) SLOW PUSH ONE (20:53)
[2019-05-31] MEDS ORDERED: Ondansetron INJ* 2 MG/ML VIAL IV ONE (20:53)
[2019-05-31] MEDS ORDERED: Ketorolac INJ* 30 MG/ML 1 ML VIAL IV PUSH ONE (20:53)
[2019-05-31] MEDS ORDERED: NS 0.9% 1000 ML** 1,000 ML IV ONE (20:53)
--- NOTE | 2019-05-31 20:56 | ED ---
Shortness of Breath - HPI Summary HPI Summary: 34 year old male presents with sudden onset shortness breath for the past hour. States it feels like his anxiety. He states he cannot take a deep breath. He states he started having nausea and vomiting and then developed a headache. Denies any chest pain. No fevers. No sinus congestion or cough. No sore throat. Not around anyone who is sick. No diarrhea. he did do some crack before his symptoms started. Has not taking anything for his pain. Not worst headache of his life. Has a history of anxiety. - History of Current Complaint Chief Complaint: EDShortnessOfBreath Time Seen by Provider: 05/31/19 20:25 - Allergy/Home Medications Allergies/Adverse Reactions: Allergies Allergy/AdvReac Type Severity Reaction Status Date / Time No Known Allergies Allergy Verified 05/31/19 20:36 Home Medications: Home Medications Acetaminophen TAB* [Tylenol TAB*] 325 mg PO Q4H PRN 12/19/18 [History Confirmed 05/08/19] Ibuprofen TAB* [Advil TAB*] 200 mg PO Q6H PRN 12/19/18 [History Confirmed ] Iron 18 mg PO DAILY 12/19/18 [History Confirmed 05/08/19] buPROPion SR TAB* [Wellbutrin SR TAB*] 300 mg PO DAILY 12/19/18 [History Confirmed 05/08/19] traZODone TAB* [Desyrel TAB*] 100 mg PO BEDTIME PRN 12/19/18 [History Confirmed 05/08/19] PMH/Surg Hx/FS Hx/Imm Hx Endocrine/Hematology History: Denies: Hx Anticoagulant Therapy, Hx Diabetes, Hx Thyroid Disease Cardiovascular History: Denies: Hx Hypertension, Hx Pacemaker/ICD Respiratory History: Denies: Hx Asthma, Hx Chronic Obstructive Pulmonary Disease (COPD) History: Denies: Hx Renal Disease Sensory History: Reports: Hx Contacts or Glasses - Does not have with him Denies: Hx Hearing Aid Opthamlomology History: Reports: Hx Contacts or Glasses - Does not have with him Neurological History: Denies: Hx Dementia, Hx Seizures Psychiatric History: Reports: [place] [facility] [facility] [place], Hx Substance Abuse - cocaine Denies: Hx Eating Disorder, Hx of Violent Episodes Against Others - denies - Surgical History Surgery Procedure, Year, and Place: None - Immunization History Date of Tetanus Vaccine: UNKNOWN Date of Influenza Vaccine: NO Infectious Disease History: No Infectious Disease History: Denies: Hx Hepatitis, Hx Human Immunodeficiency Virus (HIV), Traveled Outside the [place] in Last 30 Days - Family History Known Family History: Positive: Cardiac Disease - mother of [place] - Social History Alcohol Use: Occasionally Alcohol Amount: ETOH today Hx Substance Use: Yes Substance Use Type: Reports: Cocaine Substance Use Comment - Amount & Last Used: crack use today Hx Tobacco Use: Yes Smoking Status (MU): Heavy Every Day Tobacco Smoker Type: Cigarettes Amount Used/How Often: 5 per day Review of Systems Negative: Fever Negative: Chest Pain Negative: Shortness Of Breath Positive: Vomiting, Nausea Positive: Headache All Other Systems Reviewed And Are Negative: Yes Physical Exam Triage Information Reviewed: Yes Vital Signs On Initial Exam: Initial Vitals Temp Pulse Resp BP Pulse Ox 98.4 F 110 16 160/126 100 05/31/19 20:33 05/31/19 20:33 05/31/19 20:33 05/31/19 20:33 05/31/19 20:33 Vital Signs Reviewed: Yes Appearance: Positive: Well-Appearing Skin: Positive: Warm, Dry Head/Face: Positive: Normal Head/Face Inspection Eyes: Positive: Normal, Conjunctiva Clear ENT: Positive: Pharynx normal Respiratory/Lung Sounds: Positive: Clear to Auscultation, Breath Sounds Present Cardiovascular: Positive: Normal, RRR Abdomen Description: Positive: Nontender, Soft Bowel Sounds: Positive: Present Musculoskeletal: Positive: Normal Neurological: Positive: Sensory/Motor Intact, Alert, Oriented to Person Place, Time, CN Intact II-III Psychiatric: Positive: Anxious Procedures - Sedation Patient Received Moderate/Deep Sedation with Procedure: No Diagnostics - Vital Signs Vital Signs Temp Pulse Resp BP Pulse Ox 05/31/19 20:33 98.4 F 110 16 160/126 100 - Laboratory Result Diagrams: 05/31/19 20:52 05/31/19 20:52 Lab Statement: Any lab studies that have been ordered have been reviewed, and results considered in the medical decision making process. - Radiology chest Radiology Interpretation Completed By: ED Physician Summary of Radiographic Findings: no active disease - EKG No standard instances Cardiac Rate: Tachycardia EKG Rhythm: Sinus Tachycardia EKG Comparison: No Significant Change Summary of EKG Findings: sinus tachycardia Re-Evaluation - Re-Evaluation First Eval Re-Evaluation Time: 22:32 Change: Improved Comment: feeling better, symptoms resolved, tolerated sandwich in ED Course/Dx - Course Course Of Treatment: 34 year old male presents with sudden onset shortness breath for the past hour. States it feels like his anxiety. He states he cannot take a deep breath. He states he started having nausea and vomiting and then developed a headache. Denies any chest pain. No fevers. No sinus congestion or cough. No sore throat. Not around anyone who is sick. No diarrhea. he did do some crack before his symptoms started. Has not taking anything for his pain. Not worst headache of his life. Has a history of anxiety. On exam patient is hyperventilating. Appears anxious. Lungs are clear to auscultation. Abdomen soft nontender. Normal neuro exam. white blood cell count normal. anion gap 17 likely due to vomiting. carbon dioxide 19 likely due to hyperventilation. troponin zero. Gave Toradol Benadryl and Zofran and symptoms resolved. EKG shows sinus tachycardia. chest xray normal. No recent travel or family history of PEs. PERC rules no risk for PE. discussed symptoms likely due to anxiety. gave zofran as needed for nausea. told establish care with primary. patient understand and agrees with plan. - Diagnoses Differential Diagnosis/HQI/PQRI: Positive: [place], Pneumothorax, Pulmonary Embolism , Other - anxiety Provider Diagnoses: Shortness of breath, Vomiting, Headache - Critical Care Time Critical Care Statement: Critical care time is provided exclusive of any time spent performing procedures. Discharge ED - Sign-Out/Discharge Documenting (check all that apply): Patient Departure - Discharge Plan Condition: Good Disposition: HOME Patient Education Materials: Acute Nausea and Vomiting (ED) [place] [facility] [facility] [place] [facility] [place]] Additional Instructions: shortness of breath likely due to anxiety Can take Zofran every 6 hours as needed for nausea Drink small amounts of fluid as tolerated Take ibuprofen or Tylenol for pain as needed every 6 hours establish care with primary Return to ED if develop any new or worsening symptoms - Billing Disposition and Condition Condition: GOOD Disposition: Home - Attestation Statements Provider Attestation: I was available for consult. This patient was seen by the JOSE DE JESUS. The patient was not presented to, seen by, or examined by me. Kermit Oquendo MD
[2019-05-31 22:15] LABS: ALT 19 U/L (7-52); Albumin 4.8 g/dL (3.2-5.2); Albumin/Globulin Ratio 1.3 (1-3); Alkaline Phosphatase 81 U/L (34-104); BUN/Creatinine Ratio 16.7 (8-20); Blood Urea Nitrogen 12 mg/dL (6-24); C Reactive Protein 16.93 mg/L (<8.01); CO2 Carbon Dioxide 19 mmol/L (22-32); Calcium 9.6 mg/dL (8.6-10.3); Chloride 99 mmol/L (101-111); EGFR African American 153.1 (>60); EGFR Non-African American 126.5 (>60); Globulin 3.8 g/dL (2-4); Glucose 83 mg/dL (70-100); Sodium 135 mmol/L (135-145); Total Protein 8.6 g/dL (6.4-8.9)
[2019-05-31 22:18] LABS: Anion Gap 17 mmol/L (2-11)
[2019-05-31 22:26] LABS: ABS Monocytes 0.3 10^3/ul (0-0.8); ABS Neutrophils 4.8 10^3/ul (1.5-7.7); Eosinophil % 0.1 %; Hematocrit 43 % (42-52); Lymphocyte % 16.7 %; Mean Corpuscular HGB Conc 33 g/dL (31-36); Mean Corpuscular Hemoglobin 30 pg (27-31); Mean Corpuscular Volume 91 fL (80-94); Mean Platelet Volume 8.3 fL (7.4-10.4); Nucleated Red Blood Cells % 0.1; Platelet Count 194 10^3/uL (150-450); Red Blood Count 4.73 10^6 /uL (4.18-5.48); Red Cell Distribution Width 15 % (10-15); White Blood Count 6.1 10^3/uL (3.5-10.8)
[2019-05-31] MEDS ORDERED: O ndansetron ODT 4MG 5TAB PRPK 4 MG PAK PO ONE (22:32)
[2019-05-31 22:41] VITALS: BP 132/103
== END 2019-05-31 22:51 | disposition home or self-care (01) ==
LOC: ED 20:18
DX: R06.02 Shortness of breath (principal); R11.2 Nausea with vomiting, unspecified; F41.9 Anxiety disorder, unspecified; F17.210 Nicotine dependence, cigarettes, uncomplicated; R51 Headache
CPT/HCPCS: 36415; 71046; 80053; 84484; 85025; 86140; 93005; 96361; 96374; 96375; 99283; A9270-GY; J1200; J1885; J2405